=== PATIENT | male | born 1965 | race Caucasian/White ===

== ENCOUNTER 2016-04-26 15:15 | Inpatient (IN) | payer OTHER, MEDICARE ==
[~2016-04-26] VITALS: Ht 180.3 cm; Wt 87.7 kg
[2016-04-26 15:17] VITALS: BP 138/98; PULSE 113; RESP 17; TEMP 98.2; O2SAT 98
[2016-04-26 16:50] VITALS: BP 157/100; PULSE 102; RESP 16; O2SAT 98
[2016-04-26] MEDS ORDERED: ACETAMINOPHEN/HYDROcodone 325 MG/5 MG TAB PO ONE (17:45)
[2016-04-26] MEDS: methylPREDNISolone SOD SUCC 125 MG/2 ML VIAL IM SCH (17:45)
[2016-04-26 18:50] VITALS: BP 122/87; PULSE 83; RESP 16; O2SAT 97
--- NOTE | 2016-04-26 19:08 | RADRPT ---
EXAM DATE/TIME: 04/26/2016 18:06 [facility] COMPARISON: No previous studies available for comparison. INDICATIONS : Inability to ambulate. MEDICAL HISTORY : Carcinoma, prostate. Parkinson's. SURGICAL HISTORY : Inguinal hernia repair. ENCOUNTER: Initial ACUITY: 4-6 days PAIN SCORE: 4/10 LOCATION: Back TECHNIQUE: Multiplanar multisequence MRI of the thoracic spine was performed. FINDINGS: Sagittal T1, T2 and inversion recovery images show a mild levoscoliosis of the dorsal spine with asso ciated multilevel degenerative disc disease. Spurs are most prominent posteriorly at T7-T8 and T10-T 11 which encroach on the anterior epidural space. However, I believe the spinal canal is widely barah[place] nt throughout without cord compromise. Vertebral body heights are maintained without fracture. Detailed axial images are as follows: . T1-T2: Normal. T2-T3: The thecal sac has a normal diameter. No evidence of disc bulge or protrusion. T3-T4: The thecal sac has a normal diameter. No evidence of disc bulge or protrusion. T4-T5: The thecal sac has a normal diameter. No evidence of disc bulge or protrusion. T5-T6: The thecal sac has a normal diameter. No evidence of disc bulge or protrusion. T6-T7: The thecal sac has a normal diameter. No evidence of disc bulge or protrusion. T7-T8: Prominent left posterior disc spur. Spinal canal remains patent. T8-T9: The thecal sac has a normal diameter. No evidence of disc bulge or protrusion. T9-T10: The thecal sac has a normal diameter. No evidence of disc bulge or protrusion. T10-T11: Not as evident on the axial images, but there does appear to be a small posterior marginal spur on th e sagittal images. Minimal encroachment on the anterior epidural space but the spinal canal is paten t. T11-T12: The thecal sac has a normal diameter. No evidence of disc bulge or protrusion. T12-L1: The thecal sac has a normal diameter. No evidence of disc bulge or protrusion. CONCLUSION: 1. Minimal levoscoliosis of the lumbar spine with associated degenerative changes. Prominent disc s pur most obvious at T7-T8 with some encroachment on the anterior epidural space. 2. However, the spinal canal appears to be adequate throughout without cord compromise. No acute fr acture or listhesis. Sukhi Lizarraga MD on April 26, 2016 at 18:59 Board Certified Radiologist. This report was verified electronically.
--- NOTE | 2016-04-26 19:18 | RADRPT ---
EXAM DATE/TIME: 04/26/2016 18:06 [facility] COMPARISON: CT CERVICAL SPINE W/O CONTRAST, December 28, 2015, 0:02. INDICATIONS : Inability to ambulate. MEDICAL HISTORY : Parkinson's. Carcinoma, prostate. SURGICAL HISTORY : Inguinal hernia repair. ENCOUNTER: Initial ACUITY: 4-6 days PAIN SCORE: 0/10 LOCATION: neck TECHNIQUE: Multiplanar, multisequence MRI examination of the cervical spine was performed. FINDINGS: VERTEBRAE: Normal vertebral body height. Homogeneous marrow signal. ALIGNMENT: No evidence of subluxation. CORD: Normal configuration and signal. POST FOSSA: The cerebellar tonsils are normal in position. C2-C3: The thecal sac has a normal configuration. There is no evidence of disc herniation or spinal canal s tenosis. The neural foramina are patent bilaterally. There is facet hypertrophy. C3-C4: The thecal sac has a normal configuration. There is no evidence of disc herniation or spinal canal s tenosis. There is facet hypertrophy. There is some narrowing of the left neural foramina. The right n eural foramina is patent. C4-C5: The thecal sac has a normal configuration. There is no evidence of disc herniation or spinal canal s tenosis. There is facet hypertrophy. There is some narrowing of the left neural foramina. The right neural foramina is patent. C5-C6: There is minimal posterior bulging of the disc. The thecal sac has a normal configuration. There is f acet hypertrophy. There is some narrowing of the left neural foramina. The right neural foramina is p atent. C6-C7: The thecal sac has a normal configuration. There is no evidence of disc herniation or spinal canal s tenosis. There is facet hypertrophy. There is some narrowing of the left neural foramina. The right neural foramina is patent. C7-T1: The thecal sac has a normal configuration. There is no evidence of disc herniation or spinal canal s tenosis. The neural foramina are patent bilaterally. There is facet hypertrophy. CONCLUSION: Mild degenerative change throughout the cervical spine. There is left neural foraminal narrowing thro ughout the mid cervical spine. Sinan Roberts MD on April 26, 2016 at 19:12 Board Certified Radiologist. This report was verified electronically.
--- NOTE | 2016-04-26 19:34 | RADRPT ---
EXAM DATE/TIME: 04/26/2016 18:06 [facility] COMPARISON: No previous studies available for comparison. INDICATIONS : Inability to ambulate. MEDICAL HISTORY : Parkinson's. Carcinoma, prostate. SURGICAL HISTORY : Inguinal hernia repair. ENCOUNTER: Initial ACUITY: 4-6 days PAIN SCORE: 5/10 LOCATION: Low back TECHNIQUE: Multiplanar multisequence MRI of the lumbar spine was performed without contrast. FINDINGS: The sagittal, T1, T2 and inversion-recovery images show multilevel degenerative disc disease with Mod ic endplate changes most prominent at the lumbosacral junction. There is severe loss of disc height and a diffuse disc bulge with associated marginal spurring at the lumbosacral junction. There is pre servation of disc hydration at l2-L3 and L3-L4 with early disc desiccation at L4-L5. There is some d egree of spinal stenosis most significant at the L3-l4 level and predominantly due to posterior eleme nt hypertrophy. There is minimal grade I retrolisthesis of L5 on S1 again, likely due to facet degen eration. Also noted is a 1.6 cm benign-appearing cyst in the medial aspect of the right renal cortex . Detailed axial images as follows: . T12-L1: The thecal sac has a normal diameter. No evidence of disc bulge or protrusion. The neural foramina are patent bilaterally. L1-L2: The thecal sac has a normal diameter. No evidence of disc bulge or protrusion. The neural f oramina are patent bilaterally. L2-L3: The thecal sac has a normal diameter. No evidence of disc bulge or protrusion. The neural f oramina are patent bilaterally. L3-L4: There is marked facet hypertrophy. There is resulting moderate central spinal stenosis. I a lso believe that there is some compromise of the left L3 nerve root. The right neural foramen is com promised but I believe adequate. L4-L5: Again, marked facet hypertrophy. This encroaches on the neural foramina, left worse than rig ht and probably compromises the left L4 nerve root. Moderate central spinal stenosis. Right neural foramen is adequate. L5-S1: Most severely affected level with a diffuse disc and associated spurring. The right posterol ateral spur encroaches on the lateral recess and probably compromises the nerve root at the S1 distri bution. There is also narrowing of both neural foramina and probable compromise of the L5 nerve root s. Facet hypertrophy is present at this level as well. CONCLUSION: 1. Degenerative disc disease most severe at the lumbosacral junction with near [id number] articula tion and a diffuse disc bulge. 2. There is some narrowing of the spinal canal at L3-L4 and L4-L5. This is most severe at the L3-L4 level where there may be central nerve root compromise. 3. In addition, foraminal narrowing may be severe enough to compromise the left L3, left L4 and bila teral L5 nerve roots. This is predominantly due to facet hypertrophy. 4. Prominent disc spur at L5-S1 on the right encroaches on the lateral recess and may compromise the nerve root at right S1. 5. No acute osseous injury. Sukhi Lizarraga MD on April 26, 2016 at 19:03 Board Certified Radiologist. This report was verified electronically.
[2016-04-26] MEDS ORDERED: SODIUM CHLORIDE 0.9% FLUSH 5 ML FLUSH IVF PRN (20:15)
[2016-04-26] MEDS ORDERED: MORPHINE SULFATE 4 MG/ML INJ IV PRN (20:30)
--- NOTE | 2016-04-26 20:33 | RADRPT ---
EXAM DATE/TIME: 04/26/2016 20:24 [facility] COMPARISON: No previous studies available for comparison. INDICATIONS : Chest pain MEDICAL HISTORY : None. SURGICAL HISTORY : None. ENCOUNTER: Initial ACUITY: 1 day PAIN SCORE: 0/10 LOCATION: Bilateral chest FINDINGS: A single view of the chest demonstrates the lungs to be symmetrically aerated without evidence of mas s, infiltrate or effusion. The cardiomediastinal contours are unremarkable. There are old healed lef t rib fractures. CONCLUSION: No acute disease. Sinan Roberts MD on April 26, 2016 at 20:31 Board Certified Radiologist. This report was verified electronically.
[2016-04-26 20:54] LABS: AUTOMATED NEUTROPHIL # 2.7 TH/MM3 (1.8-7.7); BASOPHIL % 0.3 % (0.0-2.0); EOSINOPHIL % 0.2 % (0.0-4.0); HEMATOCRIT 38.5 % (39.0-51.0); LYMPH % 9.1 % (9.0-44.0); LYMPHOCYTE # 0.3 TH/MM3 (1.0-4.8); MEAN CELL VOLUME 92.2 FL (80.0-100.0); MEAN CORPUSCULAR HEMOGLOBIN 30.8 PG (27.0-34.0); MEAN CORPUSCULAR HGB CONC 33.4 % (32.0-36.0); MONO % 4.2 % (0.0-8.0); NEUT % 86.2 % (16.0-70.0); PLATELET COUNT 87 TH/MM3 (150-450); RED BLOOD COUNT 4.18 MIL/MM3 (4.50-5.90); RED CELL DISTRIBUTION WIDTH 14.9 % (11.6-17.2); WHITE BLOOD COUNT 3.1 TH/MM3 (4.0-11.0)
--- NOTE | 2016-04-26 20:54 | PD ---
HPI Chief Complaint: Numbness/Tingling Time Seen by Provider: 16:58 Travel History International Travel<30 days: No Contact w/Intl Traveler<30days: No Traveled to known affect area: No History of Present Illness HPI Patient 50-year-old male presents emergency Department with right lower extremity pain as well as difficulty in regulating for the past 4 days. Patient states he needs a steroid shot because this happens to him time to time. Patient states he does have a history of a slipped disc in his back from a rotational injury while he was feeling his gas tank 25 years ago. Patient states he has had an MRI that shows mild stenosis but has never needed surgery before. Patient states his also noticed that is very difficult for him to walk for the past 4 days because of leg weakness. He denies any history of recurrent trauma denies history of fever. No saddle anesthesia or difficulty urinating. Does have a history of Parkinson's disease. PFSH Past Medical History Medical other: Yes (SCIATICA) Influenza Vaccination: Yes Past Surgical History Other Surgery: Yes (HERNIA) Social History Alcohol Use: Yes (EVERYDAY ) Tobacco Use: No Substance Use: No Allergies-Medications (Allergen,Severity, Reaction): Coded Allergies: No Known Allergies (Unverified , 04/26/16) Reported Meds & Prescriptions Reported Meds & Active Scripts Active No Active Prescriptions or Reported Medications Review of Systems Except as stated in HPI: all other systems reviewed are Neg Physical Exam Narrative GENERAL: Well-developed well-nourished no apparent distress SKIN: Warm and dry. HEAD: Atraumatic. Normocephalic. EYES: Pupils equal and round. No scleral icterus. No injection or drainage. ENT: No nasal bleeding or discharge. Mucous membranes pink and moist. NECK: Trachea midline. No JVD. CARDIOVASCULAR: Regular rate and rhythm. No murmur appreciated. RESPIRATORY: No accessory muscle use. Clear to auscultation. Breath sounds equal bilaterally. GASTROINTESTINAL: Abdomen soft, non-tender, nondistended. Hepatic and splenic margins not palpable. MUSCULOSKELETAL: No obvious deformities. No clubbing. No cyanosis. No edema. NEUROLOGICAL: Awake and alert, bilateral pill-rolling tremors in the upper extremity. Cranial nerves II through XII are grossly intact and nonfocal, 5 out of 5 strength in bilateral upper extremities, 5 out of 5 strength in left lower externa. Patient is having one out of 5 strength in dorsiflexion and plantar flexion at the right ankle. Patient's DTRs are unable to be elicited at bilateral patellar tendons. There is no clonus in either foot. PSYCHIATRIC: Appropriate mood and affect; insight and judgment normal. Data Data Last Documented VS Vital Signs Date Time Temp Pulse Resp B/P Pulse Ox O2 Delivery O2 Flow Rate FiO2 04/26/16 18:50 83 16 122/87 97 Room Air 04/26/16 15:17 98.2 Orders Mri C Spine W/O Contrast (04/26/16 ) Mri L Spine W/O Contrast (04/26/16 ) Mri T Spine W/O Contrast (04/26/16 ) Methylprednisolone So Succ Inj (Solumedr (04/26/16 17:45) Acetamin-Hydrocod 325-5 Mg ([place] 5-325 (04/26/16 17:45) Admit Order (Ed Use Only) (04/26/16 ) Complete Blood Count With Diff (04/26/16 20:13) Comprehensive Metabolic Panel (04/26/16 20:13) Magnesium (Mg) (04/26/16 20:13) Prothrombin Time / Inr (Pt) (04/26/16 20:13) Act Partial Throm Time (Ptt) (04/26/16 20:13) Chest, Single Ap (04/26/16 20:13) Ecg Monitoring (04/26/16 20:13) Bilateral Bp Monitoring (04/26/16 20:13) Iv Access Insert/Monitor (04/26/16 20:13) Oximetry (04/26/16 20:13) Oxygen Administration (04/26/16 20:13) Sodium Chloride 0.9% Flush (Ns Flush) (04/26/16 20:15) Type And Screen (04/26/16 20:13) MDM Medical Decision Making Medical Screen Exam Complete: Yes Emergency Medical Condition: Yes Interpretation(s) EKG shows normal sinus rhythm and normal axis normal R-wave progression. No concerning STT changes. Normal EKG. Differential Diagnosis Cauda equina syndrome, critical lumbar stenosis, chronic foot drop seems less likely. Narrative Course Last 24 hours Impressions Chest X-Ray 04/26/162012 Signed Impressions: Service Date/Time: Tuesday, April 26, 2016 20:24 - CONCLUSION: No acute disease. Sinan Roberts MD Thoracic Spine MRI 04/26/16 0000 Signed Impressions: Service Date/Time: Tuesday, April 26, 2016 18:06 - CONCLUSION: 1. Minimal levoscoliosis of the lumbar spine with associated degenerative changes. Prominent disc spur most obvious at T7-T8 with some encroachment on the anterior epidural space. 2. However, the spinal canal appears to be adequate throughout without cord compromise. No acute fracture or listhesis. Sukhi Lizarraga MD Lumbar Spine MRI 04/26/16 0000 Signed Impressions: Service Date/Time: Tuesday, April 26, 2016 18:06 - CONCLUSION: 1. Degenerative disc disease most severe at the lumbosacral junction with near [id number]-[id number]-[id number] articulation and a diffuse disc bulge. 2. There is some narrowing of the spinal canal at L3-L4 and L4-L5. This is most severe at the L3-L4 level where there may be central nerve root compromise. 3. In addition, foraminal narrowing may be severe enough to compromise the left L3, left L4 and bilateral L5 nerve roots. This is predominantly due to facet hypertrophy. 4. Prominent disc spur at L5-S1 on the right encroaches on the lateral recess and may compromise the nerve root at right S1. 5. No acute osseous injury. Sukhi Lizarraga MD Cervical Spine MRI 04/26/16 0000 Signed Impressions: Service Date/Time: Tuesday, April 26, 2016 18:06 - CONCLUSION: Mild degenerative change throughout the cervical spine. There is left neural foraminal narrowing throughout the mid cervical spine. Sinan Roberts MD MRI results were discussed with the patient and I strongly urged him to consider neurosurgery consult tonight given his level of foot drop. Patient states that this happens to him intermittently and he usually responds to steroids. I discussed with him that at this point he is certainly unlikely to be able to walk given his level of foot drop and recommended strongly that he stay. Initially he was highly reluctant to wanted to go home. I asked him sign an AMA form and he was agreeable. He did attempt to stand and walk and at that point he did have a fall landing on bilateral knees. There is no evidence of significant traumatic injury to his knees. Occurrence report was filed. Patient then agreed to stay in the hospital. Dr. Escobar was consult at in will see the patient tonight she reviewed the MRI over the phone and states that surgery may be indicated. Basic labs were added as part of preoperative workup as requested by Dr. Escobar and the patient will be admitted to Dr. Escobar. Chemistry remained pending at time of admission. Diagnosis Primary Impression: Foot drop Qualified Code: M21.371 - Right foot drop Additional Impression: Spinal stenosis Patient Instructions: General Instructions, Narcotic given in the ED Departure Forms: Tests/Procedures Scripts No Active Prescriptions or Reported Meds Condition: Stable Bao Melendez MD Apr 26, 2016 20:54
[2016-04-26] MEDS: SODIUM CHLORIDE 0.9% FLUSH 5 ML FLUSH IV FLUSH SCH (20:59)
[2016-04-26 21:04] LABS: APTT (PATIENT) 26.3 SEC (24.3-30.1); INTERNATIONAL NORMALIZED RATIO 1.1 RATIO; PROTHROMBIN TIME - PATIENT 11.8 SEC (9.8-11.6)
[2016-04-26 21:12] LABS: HEMO FLAGS AUTO DIFF
[2016-04-26 21:30] LABS: ANION GAP 17 MEQ/L (5-15); AST (GOT) 207 U/L (15-37); BICARBONATE 22.5 MEQ/L (21.0-32.0); BLOOD UREA NITROGEN 11 MG/DL (7-18); CHLORIDE 96 MEQ/L (98-107); GLOMERULAR FILTRATION RATE 103 ML/MIN (>89); MAGNESIUM 1.9 MG/DL (1.5-2.5); POTASSIUM 3.5 MEQ/L (3.5-5.1); SODIUM (NA) 135 MEQ/L (136-145)
--- NOTE | 2016-04-26 21:31 | HHI.HP ---
[facility] Service neurosurgery Primary Care Physician Adal ARBOLEDA Chief Complaint: right leg giving out History of Present Illness 50 yr old with tremor dominant PD fell trying to get OOB last Wednesday morning because of right foot drop. He came to the ED and was found on MRI to have severe lumbar stenosis from L3 to L5. 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 He denied bowel or bladder problems. Review of Systems Constitutional: DENIES: Diaphoretic episodes, Fatigue, Fever, Weight gain, Weight loss, Chills, Dizziness, Change in appetite, Night Sweats Endocrine: DENIES: Heat/cold intolerance, Polydipsia, Polyuria, Polyphagia Eyes: DENIES: Blurred vision, Diplopia, Eye inflammation, Eye pain, Vision loss , Photosensitivity, Double Vision Ears, nose, mouth, throat: DENIES: Tinnitus, Hearing loss, Vertigo, Nasal discharge, Oral lesions, Throat pain, Hoarseness, Ear Pain, Running Nose, Epistaxis, Sinus Pain, Toothache, Odynophagia Respiratory: DENIES: Apneas, Cough, Snoring, Wheezing, Hemoptysis, Sputum production, Shortness of breath Cardiovascular: COMPLAINS OF: Claudication, DENIES: Chest pain, Palpitations, Syncope, Dyspnea on Exertion, PND, Lower Extremity Edema, Orthopnea Gastrointestinal: DENIES: Abdominal pain, Black stools, Bloody stools, Constipation, Diarrhea, Nausea, Vomiting, Difficulty Swallowing, Anorexia Genitourinary: DENIES: Sexual dysfunction, Urinary frequency, Urinary incontinence, Urgency, Hematuria, Dysuria, Nocturia, Penile Discharge, Testicular Pain, Testicular Swelling Musculoskeletal: COMPLAINS OF: Joint pain, Back pain Hematologic/lymphatic: DENIES: Bruising, Lymphadenopathy Immunologic/allergic: DENIES: Eczema, Urticaria Neurologic: COMPLAINS OF: Abnormal gait, Localized weakness, Tremor Psychiatric: COMPLAINS OF: Anxiety Past Family Social History Allergies: Coded Allergies: No Known Allergies (Unverified , 04/26/16) Past Medical History Parkinson's disease, not on medication, does use 4-6 beer or wine per day . He was diagnosed in [place] at [facility] OA, Club foot, right leg weakness Prostate CA, resected last spring 2015. 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 Tremor at rest and with action, right greater than left, Motor intact 5/5 in the delt/bic/tri/IO, 4/5 in the hip flexors but 5/5 in the quads bi. Right ant tib and EHL 0/5, 5/5 on the left, gastroc 5/5 eric Reflexes are 2/4 in the bic/tri, no Shepherd sign, patella reflexes are present. did not appreciate ankle reflexes. Sensation decreased in the right leg weakness is out of proportion to the pain or numbness. Abd soft, non tender, Heart RRR Lungs are clear Laboratory Laboratory Tests Test 04/26/16 20:44 White Blood Count 3.1 Red Blood Count 4.18 Hemoglobin 12.9 Hematocrit 38.5 Mean Corpuscular Volume 92.2 Mean Corpuscular Hemoglobin 30.8 Mean Corpuscular Hemoglobin 33.4 Concent Red Cell Distribution Width 14.9 Platelet Count 87 Mean Platelet Volume 9.7 Neutrophils (%) (Auto) 86.2 Lymphocytes (%) (Auto) 9.1 Monocytes (%) (Auto) 4.2 Eosinophils (%) (Auto) 0.2 Basophils (%) (Auto) 0.3 Neutrophils # (Auto) 2.7 Lymphocytes # (Auto) 0.3 Monocytes # (Auto) 0.1 Eosinophils # (Auto) 0.0 Basophils # (Auto) 0.0 CBC Comment AUTO DIFF Prothrombin Time 11.8 Prothromb Time International 1.1 Ratio Activated Partial 26.3 Thromboplast Time Result Diagram: 04/26/162043 Imaging Last Impressions Chest X-Ray 04/26/162012 Signed Impressions: Service Date/Time: Tuesday, April 26, 2016 20:24 - CONCLUSION: No acute disease. Sinan Roberts MD Thoracic Spine MRI 04/26/16 0000 Signed Impressions: Service Date/Time: Tuesday, April 26, 2016 18:06 - CONCLUSION: 1. Minimal levoscoliosis of the lumbar spine with associated degenerative changes. Prominent disc spur most obvious at T7-T8 with some encroachment on the anterior epidural space. 2. However, the spinal canal appears to be adequate throughout without cord compromise. No acute fracture or listhesis. Sukhi Lizarraga MD Lumbar Spine MRI 04/26/16 0000 Signed Impressions: Service Date/Time: Tuesday, April 26, 2016 18:06 - CONCLUSION: 1. Degenerative disc disease most severe at the lumbosacral junction with near [id number] articulation and a diffuse disc bulge. 2. There is some narrowing of the spinal canal at L3-L4 and L4-L5. This is most severe at the L3-L4 level where there may be central nerve root compromise. 3. In addition, foraminal narrowing may be severe enough to compromise the left L3, left L4 and bilateral L5 nerve roots. This is predominantly due to facet hypertrophy. 4. Prominent disc spur at L5-S1 on the right encroaches on the lateral recess and may compromise the nerve root at right S1. 5. No acute osseous injury. Sukhi Lizarraga MD Cervical Spine MRI 04/26/16 0000 Signed Impressions: Service Date/Time: Tuesday, April 26, 2016 18:06 - CONCLUSION: Mild degenerative change throughout the cervical spine. There is left neural foraminal narrowing throughout the mid cervical spine. Sinan Roberts MD Assessment and Plan Diagnosis: (1) Spinal stenosis Assessment and Plan Plan admission, OT/PT, lumbar decompression from L3 to L5. The thrombocytopenia is probably from alcohol use and does increase the risk of surgery. Other risks infection, CSF leak, recurrent stenosis were discussed with him. An AFO is ordered as well as DVT and PUD prophylaxis. Problem Qualifiers (1) Spinal stenosis: Qualified Code: M48.06 - Spinal stenosis of lumbar region Wesley Escobar Apr 26, 2016 21:31
[2016-04-26 21:33] LABS: ALKALINE PHOSPHATASE 74 U/L (45-117); ALT (GPT) 118 U/L (12-78); PLATELET ESTIMATE SMEAR LOW (NORMAL); PLATELET MORPHOLOGY NORMAL (NORMAL); SCAN/DIFF AUTO DIFF CONFIRMED; TOTAL BILIRUBIN ADULT 3.5 MG/DL (0.2-1.0)
[2016-04-26 22:09] VITALS: BP 133/88; PULSE 110; RESP 18; O2SAT 97
[2016-04-26] MEDS: GABAPENTIN 400 MG CAP PO SCH (22:09)
[2016-04-26 22:30] VITALS: BP 156/92; PULSE 105; RESP 20; TEMP 98.1; O2SAT 96
[2016-04-26] MEDS: ALPRAZolam 0.25 MG TAB PO PRN (23:31)
[2016-04-27 01:31] VITALS: BP 157/93; PULSE 96; RESP 20; TEMP 98.2; O2SAT 97
[2016-04-27 04:35] VITALS: BP 149/82; PULSE 90; RESP 20; TEMP 97.8; O2SAT 96
[2016-04-27 06:28] LABS: INDIRECT BILIRUBIN 1.2 MG/DL (0.0-0.8); TOTAL BILIRUBIN ADULT 2.8 MG/DL (0.2-1.0)
[2016-04-27 09:18] VITALS: BP 152/92; PULSE 99; RESP 18; TEMP 96.5; O2SAT 98
[2016-04-27] MEDS ORDERED: DIATRIZOATE MEGLUM/DIATRIZOATE SOD 9 ML CUP PO ONE (09:30)
[2016-04-27] MEDS: NAPROXEN 500 MG TAB PO SCH ×3 (09:48→22:41)
[2016-04-27] MEDS: PANTOPRAZOLE SODIUM 40 MG VIAL IV SCH (09:49)
[2016-04-27] MEDS: SODIUM CHLORIDE 0.9% FLUSH 5 ML FLUSH IV FLUSH SCH ×2 (09:49→22:20)
[2016-04-27 11:36] VITALS: BP 155/95; PULSE 73; RESP 18; TEMP 96.6; O2SAT 99
[2016-04-27] MEDS ORDERED: IOHEXOL 350 MG/ML 10 ML VIAL (for RAD DIAG) IV ONE (12:58)
--- NOTE | 2016-04-27 13:31 | RADRPT ---
EXAM DATE/TIME: 04/27/2016 12:49 [facility] COMPARISON: No previous studies available for comparison. INDICATIONS : Abnormal liver profile. IV CONTRAST: 76 cc Omnipaque 350 (iohexol) IV ORAL CONTRAST: Prescribed oral contrast ingested. RADIATION DOSE: 8.49 CTDIvol (mGy) MEDICAL HISTORY : Parkinson's. SURGICAL HISTORY : hernia surgery ENCOUNTER: Initial ACUITY: 1 day PAIN SCALE: 0/10 LOCATION: Bilateral abdomen TECHNIQUE: Volumetric scanning of the abdomen and pelvis was performed. Using automated exposure control and adjustment of the mA and/or kV according to patient size, radiation dose was kept as low as reasonably achievable to obtain optimal diagnostic quality images. FINDINGS: LOWER LUNGS: The visualized lower lungs are clear. LIVER: There is hepatomegaly with decreased homogeneous density consistent with fatty metamorphos is. Gallbladder is seen as a luminal structure without wall thickening or stones and bile ducts are n ormal size. SPLEEN: Normal size without lesion. PANCREAS: Within normal limits. KIDNEYS: Normal in size and shape. There is no stone or hydronephrosis. Small 1.2 cm cyst lower pole right kidney ADRENAL GLANDS: Within normal limits. VASCULAR: There is no aortic aneurysm. BOWEL/MESENTERY: The stomach, small bowel, and colon demonstrate no acute abnormality. There is no free intraperitoneal air or fluid. ABDOMINAL WALL: Within normal limits. RETROPERITONEUM: There is no lymphadenopathy. BLADDER: No wall thickening or mass. Surgical clips in place in the prostate region. REPRODUCTIVE: Within normal limits. INGUINAL: There is no lymphadenopathy or hernia. MUSCULOSKELETAL: Degenerative changes of lower lumbar spine primarily facet arthritic changes wit h degenerative changes disc disease at L5-S1 and hypertrophic spurring CONCLUSION: 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 Clips in the region the prostate, degenerative changes primar niharika facets of the lower lumbar spine and a small 1.2 cm cyst lower pole right kidney. Felice Dong MD on April 27, 2016 at 13:25 Board Certified Radiologist. This report was verified electronically.
--- NOTE | 2016-04-27 13:40 | PD.CONS ---
HPI History of Present Illness This is a 50 year old male patient who woke up early Wednesday morning to go to the bathroom and states that when he went to stand up his right leg was so weak that he cannot stand and he fell to the floor. He was unable to get up by himself. He states initially his was helping him and he was trying to use a cane and he had around the house but he got to the point that he cannot ambulate. He does have a history of Parkinson's disease. He reports that he has had tremors, worse on his right side since he was a child and that he was diagnosed at [facility] with Parkinson's disease. He states that his disease has not progressed at all since he was a child and that he was able to cope by teaching himself how to write with his left hand, as his tremors are very mild on his left side. He was found to have spinal stenosis at L3-L4 and L4-L5 with central nerve root compromise and was evaluated by neurosurgery and the plan is for him to undergo a lumbar decompression from L3 to L5. GI has been consulted for evaluation for possible liver disease. He was noted to have elevated LFTs on admission with a total bilirubin of 3.5, AST 207, ALT 118, alkaline phosphatase 74. Of note his albumin was 3.9, platelets 87, and PT 11.8 with an INR of 1.1 and a PTT of 26.3. The patient denies any known history of liver cirrhosis or other liver disease such as hepatitis in himself or other family members. He does drink 4 beers daily. He was recently started on any medication but cannot recall what this was. He only occasionally uses acetaminophen. He denies any nausea, vomiting, abdominal pain, weight loss, constipation, diarrhea, melena, or hematochezia. He just got back to his room from having a CT scan of his abdomen and pelvis and this report is pending. ( Honey Pickett) PFSH Past Medical History ? Parkinson's, pt states diagnosed at [facility], not on medications Osteoarthritis History of club foot Prostate cancer in May 2015 status post surgery and radiation Past Surgical History Surgery for prostate cancer Surgery for club foot (Honey Pickett) Coded Allergies: No Known Allergies (Unverified , 04/26/16) Medications Allergies Coded Allergies Type Severity Reaction Last Updated Verified No Known Allergies 1/22/17 No Active Scripts Medications Dose Route/Sig Days Date Category No Active Prescriptions or Reported Medications Rx Does report that he was recently started on any medication but does not recall what this was Family History Family history with COPD in father and mother with high blood pressure. Eyes any known family history of liver disease Social History Patient drinks 4-6 beers per day. He denies any tobacco or illicit drug use ( Honey Pickett) Review of Systems Constitutional: DENIES: Fatigue, Weight loss Respiratory: DENIES: Cough, Shortness of breath Cardiovascular: DENIES: Chest pain Gastrointestinal: DENIES: Abdominal pain, Black stools, Bloody stools, Constipation, Diarrhea, Nausea, Vomiting, Swelling of Abdomen, Heartburn Musculoskeletal: COMPLAINS OF: Joint pain Integumentary: DENIES: Abnormal pigmentation Neurologic: COMPLAINS OF: Abnormal gait (tremors), Localized weakness, DENIES : Headache Psychiatric: DENIES: Confusion (Honey Pickett) GI Exam Vitals I&O Vital Signs Date Time Temp Pulse Resp B/P Pulse Ox O2 Delivery O2 Flow Rate FiO2 04/27/16 11:36 96.6 73 18 155/95 99 04/27/16 11:30 18 04/27/16 09:18 96.5 99 18 152/92 98 04/27/16 04:35 97.8 90 20 149/82 96 04/27/16 01:31 98.2 96 20 157/93 97 04/26/16 22:30 98.1 105 20 156/92 96 04/26/16 22:09 110 18 133/88 97 Room Air 04/26/16 18:50 83 16 122/87 97 Room Air 04/26/16 16:50 102 16 157/100 98 Room Air 04/26/16 15:17 98.2 113 17 138/98 98 I/O 04/26/16 04/26/16 04/26/16 04/27/16 04/27/16 04/27/16 07:00 15:00 23:00 07:00 15:00 23:00 Intake Total 960 ml Output Total 1500 ml Balance -540 ml Intake Oral 960 ml Output Urine Total 1500 ml # Bowel Movements 1 Imaging Last 24 hours Impressions Chest X-Ray 04/26/162012 Signed Impressions: Service Date/Time: Tuesday, April 26, 2016 20:24 - CONCLUSION: No acute disease. Sinan Roberts MD Laboratory Test 04/26/16 04/27/16 20:44 05:35 White Blood Count 3.1 TH/MM3 Red Blood Count 4.18 MIL/MM3 Hemoglobin 12.9 GM/DL Hematocrit 38.5 % Mean Corpuscular Volume 92.2 FL Mean Corpuscular Hemoglobin 30.8 PG Mean Corpuscular Hemoglobin 33.4 % Concent Red Cell Distribution Width 14.9 % Platelet Count 87 TH/MM3 Mean Platelet Volume 9.7 FL Neutrophils (%) (Auto) 86.2 % Lymphocytes (%) (Auto) 9.1 % Monocytes (%) (Auto) 4.2 % Eosinophils (%) (Auto) 0.2 % Basophils (%) (Auto) 0.3 % Neutrophils # (Auto) 2.7 TH/MM3 Lymphocytes # (Auto) 0.3 TH/MM3 Monocytes # (Auto) 0.1 TH/MM3 Eosinophils # (Auto) 0.0 TH/MM3 Basophils # (Auto) 0.0 TH/MM3 CBC Comment AUTO DIFF Differential Comment AUTO DIFF CONFIRMED Platelet Estimate LOW Platelet Morphology Comment NORMAL Prothrombin Time 11.8 SEC Prothromb Time International 1.1 RATIO Ratio Activated Partial 26.3 SEC Thromboplast Time Sodium Level 135 MEQ/L Potassium Level 3.5 MEQ/L Chloride Level 96 MEQ/L Carbon Dioxide Level 22.5 MEQ/L Anion Gap 17 MEQ/L Blood Urea Nitrogen 11 MG/DL Creatinine 0.79 MG/DL Estimat Glomerular Filtration 103 ML/MIN Rate Random Glucose 134 MG/DL Calcium Level 9.1 MG/DL Magnesium Level 1.9 MG/DL Total Bilirubin 3.5 MG/DL 2.8 MG/DL Aspartate Amino Transf 207 U/L 244 U/L (AST/SGOT) Alanine Aminotransferase 118 U/L 127 U/L (ALT/SGPT) Alkaline Phosphatase 74 U/L 69 U/L Total Protein 8.1 GM/DL 7.4 GM/DL Albumin 3.9 GM/DL 3.6 GM/DL Blood Type A POSITIVE Antibody Screen NEGATIVE Erythrocyte Sedimentation Rate 16 mm/hr Direct Bilirubin 1.6 MG/DL Indirect Bilirubin 1.2 MG/DL Prostate Specific Antigen 0.27 NG/ML Physical Examination HEENT: Normocephalic; atraumatic; no jaundice. CHEST: CTA CARDIAC: RRR ABDOMEN: Soft, nondistended, nontender; no hepatosplenomegaly; bowel sounds are present in all four quadrants. EXTREMITIES: No clubbing, cyanosis, or edema. SKIN: Normal; no rash; no jaundice. 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 Tremors to all extremities, more pronounced on right side (Honey Pickett) Assessment and Plan Plan ASSESSMENT: - Elevated LFTs. He was noted to have elevated LFTs on admission with a total bilirubin of 3.5, AST 207, ALT 118, alkaline phosphatase 74. Of note his albumin was 3.9, platelets 87, and PT 11.8 with an INR of 1.1 and a PTT of 26.3. The patient denies any known history of liver cirrhosis or other liver disease such as hepatitis in himself or other family members. He does drink 4 beers daily. He was recently started on any medication but cannot recall what this was. He only occasionally uses acetaminophen. No GI symptoms. CT Scan pending. Will order liver workup, await CT report. - RLE weakness with spinal stenosis at L3-L4 and L4-L5 with central nerve root compromise. S/P NSx and the plan is for him to undergo a lumbar decompression from L3 to L5. - Tremors. Pt states that he has had this since he was a child, worse on the right. States that he has been able to cope by teaching himself to write with his left hand. He reports that he was diagnosed with Parkinson 's at [facility] and is not on medication and that he has not had any progression of his disease since childhood. PLAN: - ANIVAL - Await CT Scan - Hepatitis panel - AFP level - GÉNESIS, ASMA, AMA - Ceruloplasmin, Alpha 1 Antitrypsin - Ferritin, Iron Saturation - Monitor labs - Avoid hepatotoxic meds - Supportive care - Further recommendations to follow based on results of above - Pt seen and examined by Dr. Bland and myself and this note is written on his behalf (Honey Pickett) Physician Comments agree with above (Paola Bland MD) Honey Pickett Apr 27, 2016 13:40 Paola Bland MD Apr 28, 2016 20:19
[2016-04-27 15:49] VITALS: BP 129/87; PULSE 89; RESP 18; TEMP 98.3; O2SAT 99
--- NOTE | 2016-04-27 16:39 | EKG ---
Date Performed: 04/26/2016 Time Performed: 20:37:46 PTAGE: 50 years EKG: Sinus rhythm TALL T-WAVES, SUGGESTS HYPERKALEMIA ABNORMAL ECG NO PREVIOUS TRACING DOCTOR: Kassie Barroso Interpretating Date/Time 04/27/2016 16:37:00
[2016-04-27] MEDS: methylPREDNISolone SOD SUCC 125 MG/2 ML VIAL IM SCH (17:45)
[2016-04-27 20:00] VITALS: BP 130/82; PULSE 89; RESP 18; TEMP 98.7; O2SAT 99
[2016-04-27 22:16] LABS: FERRITIN 1595 NG/ML (26-388); TRANSFERRIN IRON PROFILE 220 MG/DL (200-360)
[2016-04-27] MEDS: GABAPENTIN 400 MG CAP PO SCH (22:19)
[2016-04-27] MEDS: oxyCODONE/ACETAMINOPHEN 5 MG/325 MG TAB PO PRN (22:19)
[2016-04-27] MEDS: ALPRAZolam 0.25 MG TAB PO PRN (22:42)
[2016-04-28] VITALS (11 sets, daily range): BP systolic 115–171; BP diastolic 79–109; PULSE 67–85; RESP 18–20; TEMP 96.2–97.9; O2SAT 97–99
[2016-04-28] MEDS ORDERED: ENALAPRILAT 1.25 MG/ML VIAL IV PUSH SCH (01:15)
[2016-04-28] MEDS: SODIUM CHLORIDE 0.9% FLUSH 5 ML FLUSH IV FLUSH PRN (01:21)
[2016-04-28] MEDS: NAPROXEN 500 MG TAB PO SCH ×2 (10:01→20:29)
[2016-04-28] MEDS: SODIUM CHLORIDE 0.9% FLUSH 5 ML FLUSH IV FLUSH SCH ×2 (10:02→20:30)
[2016-04-28] MEDS: PANTOPRAZOLE SODIUM 40 MG VIAL IV SCH (10:02)
--- NOTE | 2016-04-28 10:52 | HHI.NSPN ---
History Chief Complaint: cramping in thr right leg Interval History 50 yr old with essential tremor and tremor dominant PD presented with a fall. He is very weak and numb in the right leg. Lumbar stenosis was evident on MRI but he was found on pre-op testing to have fatty liver and abnormal LFTs. GI input is appreciated. He he is now ready to procedure with lumbar decompression surgery. Review of Systems General: Negative for: fever, chills, insomnia Respiratory: Negative for: shortness of breath, cough, sputum Cardiovascular: Negative for: chest pain, palpitations, orthopnea Gastrointestinal: Negative for: nausea, vomitting, diarrhea, constipation Genitourinary: Negative for: urinary burning, urinary frequency, urinary urgency System Review Comments Fatty liver Negative PSA and CT of the abdomen pelcis for prostate CA at this time Exam Results Vital Signs Date Time Temp Pulse Resp B/P Pulse Ox O2 Delivery O2 Flow Rate FiO2 04/28/16 08:00 97.4 67 20 135/90 97 04/26/16 22:09 Room Air Intake and Output 04/27/16 04/27/16 04/28/16 08:00 16:00 00:00 Intake Total 960 ml 480 ml Output Total 1500 ml Balance -540 ml 480 ml Physical Examination Sitting on the edge of the bed alert and interactive, speech clear, eomi, No pronator drift, no bradykinesia, normal finger taps bilaterally but better on the left than the right. Dysmetria, right sided Weakness right hip felxor4/5, quad 4/5, ant tib 0/5, gastroc 4/5 Weakness in the left hip flexor 4+/5, quad 5/5, ant tib 5/5, gastroc 5/5 Numbness mostly right L5/S1 Reflexes are present 2/4 in the left patella and ankle, 1/4 in the right patella and ankle Lab, Micro, Other Results Laboratory Tests Test 04/27/16 12:12 Iron Level 115 MCG/DL Total Iron Binding Capacity 308 MCG/DL Percent Iron Saturation 37.3 % Ferritin 1595 NG/ML Tumor Marker Alpha Fetoprotein 7.6 NG/ML Hepatitis A IgM Antibody NEGATIVE Hepatitis B Surface Antigen NEGATIVE Hepatitis B Core IgM Antibody NEGATIVE Hepatitis C Antibody NEGATIVE Free Prostate Specific Antigen <0.1 ng/mL Prostate Specific Antigen 0.31 ng/mL Total Prostate Specific Antign . ratio Free/Total Medical Decision Making Impression and Plan Last Impressions Abdomen/Pelvis CT 04/27/16 0000 Signed Impressions: Service Date/Time: Wednesday, April 27, 2016 12:49 - CONCLUSION: 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 Clips in the region the prostate, degenerative changes primarily facets of the lower lumbar spine and a small 1.2 cm cyst lower pole right kidney. Felice Dong MD Chest X-Ray 04/26/162012 Signed Impressions: Service Date/Time: Tuesday, April 26, 2016 20:24 - CONCLUSION: No acute disease. Sinan Roberts MD Thoracic Spine MRI 04/26/16 0000 Signed Impressions: Service Date/Time: Tuesday, April 26, 2016 18:06 - CONCLUSION: 1. Minimal levoscoliosis of the lumbar spine with associated degenerative changes. Prominent disc spur most obvious at T7-T8 with some encroachment on the anterior epidural space. 2. However, the spinal canal appears to be adequate throughout without cord compromise. No acute fracture or listhesis. Sukhi Lizarraga MD Lumbar Spine MRI 04/26/16 0000 Signed Impressions: Service Date/Time: Tuesday, April 26, 2016 18:06 - CONCLUSION: 1. Degenerative disc disease most severe at the lumbosacral junction with near [id number] articulation and a diffuse disc bulge. 2. There is some narrowing of the spinal canal at L3-L4 and L4-L5. This is most severe at the L3-L4 level where there may be central nerve root compromise. 3. In addition, foraminal narrowing may be severe enough to compromise the left L3, left L4 and bilateral L5 nerve roots. This is predominantly due to facet hypertrophy. 4. Prominent disc spur at L5-S1 on the right encroaches on the lateral recess and may compromise the nerve root at right S1. 5. No acute osseous injury. Sukhi Lizarraga MD Cervical Spine MRI 04/26/16 0000 Signed Impressions: Service Date/Time: Tuesday, April 26, 2016 18:06 - CONCLUSION: Mild degenerative change throughout the cervical spine. There is left neural foraminal narrowing throughout the mid cervical spine. Sinan Roberts MD 1- Lumbar stenosis , plan is for lumbar laminectomy at L3, L4, L5 for decompression of the cauda equina tomorrow morning. OT/PT appreciated and following. He is now up with the walker. His gabapentin is being titrated up. 2- Fatty liver. Gi input appreciated, no evidence of CA at this time. ETOH abstinence was discussed. A follow up with his PCP at [facility] is planned. 3- DVT prophylaxis with SCDs when in bed, Total Minutes: 10 Wesley Escobar Apr 28, 2016 10:52
--- NOTE | 2016-04-28 14:15 | HHI.GIFU ---
Subjective Remarks Resting in bed. No complaints. States he is scheduled for surgery tomorrow. (Honey Pickett) Objective Vitals I&O Vital Signs Date Time Temp Pulse Resp B/P Pulse Ox O2 Delivery O2 Flow Rate FiO2 04/28/16 12:00 97.6 82 20 130/86 99 04/28/16 08:00 97.4 67 20 135/90 97 04/28/16 04:00 97.1 68 18 138/85 99 04/28/16 02:20 68 116/80 04/28/16 02:05 69 115/84 04/28/16 01:48 68 117/79 04/28/16 01:37 84 134/89 04/28/16 00:30 68 171/109 04/28/16 00:27 166/103 04/28/16 00:00 97.9 69 18 154/101 98 04/27/16 20:00 98.7 89 18 130/82 99 04/27/16 15:49 98.3 89 18 129/87 99 I/O 04/27/16 04/27/16 04/27/16 04/28/16 04/28/16 04/28/16 07:00 15:00 23:00 07:00 15:00 23:00 Intake Total 960 ml 480 ml 240 ml Output Total 1500 ml 200 ml 900 ml Balance -540 ml 480 ml 40 ml -900 ml Intake Oral 960 ml 480 ml 240 ml Output Urine Total 1500 ml 200 ml 900 ml # Voids 3 # Bowel Movements 1 Imaging Last Impressions Abdomen/Pelvis CT 04/27/16 0000 Signed Impressions: Service Date/Time: Wednesday, April 27, 2016 12:49 - CONCLUSION: 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 Clips in the region the prostate, degenerative changes primarily facets of the lower lumbar spine and a small 1.2 cm cyst lower pole right kidney. Felice Dong MD Chest X-Ray 04/26/162012 Signed Impressions: Service Date/Time: Tuesday, April 26, 2016 20:24 - CONCLUSION: No acute disease. iSnan Roberts MD Thoracic Spine MRI 04/26/16 0000 Signed Impressions: Service Date/Time: Tuesday, April 26, 2016 18:06 - CONCLUSION: 1. Minimal levoscoliosis of the lumbar spine with associated degenerative changes. Prominent disc spur most obvious at T7-T8 with some encroachment on the anterior epidural space. 2. However, the spinal canal appears to be adequate throughout without cord compromise. No acute fracture or listhesis. Sukhi Lizarraga MD Lumbar Spine MRI 04/26/16 0000 Signed Impressions: Service Date/Time: Tuesday, April 26, 2016 18:06 - CONCLUSION: 1. Degenerative disc disease most severe at the lumbosacral junction with near yirb-ew-[id number] articulation and a diffuse disc bulge. 2. There is some narrowing of the spinal canal at L3-L4 and L4-L5. This is most severe at the L3-L4 level where there may be central nerve root compromise. 3. In addition, foraminal narrowing may be severe enough to compromise the left L3, left L4 and bilateral L5 nerve roots. This is predominantly due to facet hypertrophy. 4. Prominent disc spur at L5-S1 on the right encroaches on the lateral recess and may compromise the nerve root at right S1. 5. No acute osseous injury. Sukhi Lizarraga MD Cervical Spine MRI 04/26/16 0000 Signed Impressions: Service Date/Time: Tuesday, April 26, 2016 18:06 - CONCLUSION: Mild degenerative change throughout the cervical spine. There is left neural foraminal narrowing throughout the mid cervical spine. Sinan Roberts MD Physical Exam HEENT: Normocephalic; atraumatic; no jaundice. CHEST: CTA CARDIAC: RRR ABDOMEN: Soft, nondistended, nontender; no hepatosplenomegaly; bowel sounds are present in all four quadrants. EXTREMITIES: No clubbing, cyanosis, or edema. SKIN: Normal; no rash; no jaundice. 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 Tremors to all extremities, more pronounced on right side (PickettHoney CLEAR COAT SPRAYER) Assessment and Plan Plan ASSESSMENT: - Elevated LFTs. He was noted to have elevated LFTs on admission with a total bilirubin of 3.5, AST 207, ALT 118, alkaline phosphatase 74. Of note his albumin was 3.9, platelets 87, and PT 11.8 with an INR of 1.1 and a PTT of 26.3. The patient denies any known history of liver cirrhosis or other liver disease such as hepatitis in himself or other family members. He does drink 4 beers daily. He was recently started on any medication but cannot recall what this was. He only occasionally uses acetaminophen. No GI symptoms. 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 Clips in the region the prostate, degenerative changes primarily facets of the lower lumbar spine and a small 1.2 cm cyst lower pole right kidney. Iron saturation 37.3%, Ferritin 1595, AFP 7.6, Alpha 1 Antitrypsin pending, Ceruloplasmin pending, GÉNESIS/ASMA/AMA pending. Hepatitis profile negative. - RLE weakness with spinal stenosis at L3-L4 and L4-L5 with central nerve root compromise. S/P NSx and the plan is for him to undergo a lumbar decompression from L3 to L5. NSx following, states scheduled for surgery tomorrow at 8am. - Tremors. Pt states that he has had this since he was a child, worse on the right. States that he has been able to cope by teaching himself to write with his left hand. He reports that he was diagnosed with Parkinson 's at [facility] and is not on medication and that he has not had any progression of his disease since childhood. PLAN: - ANIVAL - Await GÉNESIS, ASMA, AMA - Await Ceruloplasmin, Alpha 1 Antitrypsin - Monitor labs - Avoid hepatotoxic meds - Supportive care - Further recommendations to follow based on results of above - Pt seen and examined by Dr. Bland and myself and this note is written on his behalf (Honey Pickett) Physician Comments agree with above (Paola Bland MD) Honey Pickett Apr 28, 2016 14:15 Paola Bland MD Apr 28, 2016 20:19
[2016-04-28] MEDS: GABAPENTIN 400 MG CAP PO SCH ×2 (14:45→20:29)
[2016-04-28] MEDS: FOLIC ACID 1 MG TAB PO SCH (14:45)
[2016-04-28] MEDS: THIAMINE INJ 100 MG in SODIUM CHLORIDE 0.9% INJ 100 ML IV SCH (14:45)
[2016-04-28] MEDS: methylPREDNISolone SOD SUCC 125 MG/2 ML VIAL IM SCH (16:52)
[2016-04-28] MEDS: ALPRAZolam 0.25 MG TAB PO PRN (22:35)
[2016-04-28] MEDS: oxyCODONE/ACETAMINOPHEN 5 MG/325 MG TAB PO PRN (22:36)
[2016-04-28] MEDS: SODIUM CHLOR 0.9% 1000 ML INJ 1,000 ML IV SCH (23:04)
[2016-04-29] VITALS (8 sets, daily range): BP systolic 122–177; BP diastolic 60–101; PULSE 71–97; RESP 16–20; TEMP 96.9–97.4; O2SAT 96–98
[2016-04-29] MEDS: ENALAPRILAT 1.25 MG/ML VIAL IV PUSH PRN ×2 (03:54→17:20)
[2016-04-29] MEDS ORDERED: THROMBIN (TOPICAL) 5,000 UNIT VIAL ONE (07:32)
[2016-04-29] MEDS ORDERED: GELFOAM SIZE 100 ONE (07:32)
[2016-04-29] MEDS ORDERED: LIDOCAINE 1%/EPINEPHrine 1:100,000 SOLN 30 ML VIAL ONE (07:32)
[2016-04-29] MEDS ORDERED: BUPIVACAINE HCL PF 0.5% 30 ML VIAL ONE (07:32)
[2016-04-29] MEDS ORDERED: ceFAZolin 2 GM PREMIX 50 ML ONE (08:44)
[2016-04-29] MEDS ORDERED: ARTIFICIAL TEARS OPTH OINT 3.5 APPLIC/3.5 GM TUBO ONE (08:52)
[2016-04-29] MEDS ORDERED: MIDAZOLAM HCL 5 MG/5 ML VIAL ONE (08:52)
[2016-04-29] MEDS ORDERED: fentaNYL CITRATE 250 MCG/5 ML AMP ONE ×2 (08:52)
[2016-04-29] MEDS ORDERED: FAMOTIDINE 20 MG/2 ML VIAL ONE (08:52)
[2016-04-29] MEDS: SODIUM CHLORIDE 0.9% FLUSH 5 ML FLUSH IV FLUSH SCH ×2 (09:00→22:18)
[2016-04-29] MEDS: THIAMINE INJ 100 MG in SODIUM CHLORIDE 0.9% INJ 100 ML IV SCH (09:00)
[2016-04-29] MEDS: GABAPENTIN 400 MG CAP PO SCH ×2 (09:00→22:11)
[2016-04-29] MEDS: PANTOPRAZOLE SOD 40 MG DELAYED RELEASE TAB PO SCH (09:00)
[2016-04-29] MEDS: NAPROXEN 500 MG TAB PO SCH ×2 (09:00→23:05)
[2016-04-29] MEDS: FOLIC ACID 1 MG TAB PO SCH (09:00)
[2016-04-29] MEDS ORDERED: PROPOFOL 200 MG/20 ML AMP IV ONE (09:08)
[2016-04-29] MEDS ORDERED: LACTATED RINGER'S 1000 ML INJ 1,000 ML IV ONE (09:08)
[2016-04-29] MEDS ORDERED: ONDANSETRON HCL 4 MG/2 ML VIAL IV PUSH ONE (09:08)
[2016-04-29] MEDS ORDERED: NEOSTIGMINE 3 MG/3 ML SYR IV ONE (09:08)
[2016-04-29] MEDS ORDERED: ePHEDrine/NS 50 MG/5 ML SYR IV ONE (09:08)
[2016-04-29] MEDS ORDERED: ceFAZolin 2 GM PREMIX 50 ML IV ONE (10:45)
[2016-04-29] MEDS ORDERED: ceFAZolin INJ 1,000 MG VIAL IV ONE (12:50)
--- NOTE | 2016-04-29 13:23 | RADRPT ---
EXAM DATE/TIME: 04/29/2016 09:16 [place] COMPARISON: No previous studies available for comparison. INDICATIONS : Herniated disk, laminectomy L3-4, L4-5. MEDICAL HISTORY : None. SURGICAL HISTORY : None. ENCOUNTER: Initial ACUITY: 1 day PAIN SCORE: 0/10 LOCATION: Lumbar spine. FINDINGS: Lateral matrix view in the OR demonstrates posterior marker projection the more caudad towards L5-S1 and possibly one towards the L3 vertebral body. CONCLUSION: Localization as described Felice Dong MD on April 29, 2016 at 13:21 Board Certified Radiologist. This report was verified electronically.
[2016-04-29] MEDS ORDERED: DO NOT ADM ANY ANTICOAGULANT DRUGS XX PRN (13:26)
[2016-04-29] MEDS ORDERED: *hydrOXYzine 25 MG VIAL PERIprocedural Use ONLY IM ONE (13:35)
[2016-04-29] MEDS ORDERED: *morphine SULFATE 8 MG/ML PERIprocedure ONLY ONE (13:35)
[2016-04-29] MEDS ORDERED: *LABETALOL HCL 100 MG/20 ML VIAL PERIprocedural Use ONLY ONE (14:25)
--- NOTE | 2016-04-29 17:16 | HHI.GIFU ---
Subjective Remarks Had surgery earlier today. States pain is controlled. No GI symptoms Objective Vitals I&O Vital Signs Date Time Temp Pulse Resp B/P Pulse Ox O2 Delivery O2 Flow Rate FiO2 04/29/16 15:55 97.3 75 18 163/91 97 04/29/16 14:00 79 16 158/92 97 Nasal Cannula 2 04/29/16 13:45 101 16 178/111 96 Nasal Cannula 2 04/29/16 13:30 94 16 162/92 95 Nasal Cannula 2 04/29/16 13:25 98.1 95 16 156/90 96 Nasal Cannula 2 04/29/16 08:00 97.4 71 18 177/101 96 04/29/16 07:00 80 156/97 04/29/16 04:05 97.2 96 16 161/100 98 04/29/16 00:00 97.1 97 16 127/74 98 04/28/16 23:36 20 04/28/16 21:29 16 I/O 04/28/16 04/28/16 04/28/16 04/29/16 04/29/16 04/29/16 07:00 15:00 23:00 07:00 15:00 23:00 Intake Total 240 ml 410 ml 0 ml 3000 ml Output Total 200 ml 900 ml 500 ml 1200 ml 1220 ml 400 ml Balance 40 ml -900 ml -90 ml -1200 ml 1780 ml -400 ml Intake Oral 240 ml 300 ml 0 ml 0 ml IV Total 110 ml 200 ml Other 2800 ml Output Urine Total 200 ml 900 ml 500 ml 1200 ml 200 ml 400 ml Drainage Total 20 ml Estimated Blood Loss 400 ml Other 600 ml # Voids 1 # Bowel Movements 0 0 1 Imaging Last Impressions Lumbar Spine X-Ray 04/29/16 0000 Signed Impressions: Service Date/Time: Friday, April 29, 2016 09:16 - CONCLUSION: Localization as described Felice Dong MD Abdomen/Pelvis CT 04/27/16 0000 Signed Impressions: Service Date/Time: Wednesday, April 27, 2016 12:49 - CONCLUSION: 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 Clips in the region the prostate, degenerative changes primarily facets of the lower lumbar spine and a small 1.2 cm cyst lower pole right kidney. Felice Dong MD Chest X-Ray 04/26/162012 Signed Impressions: Service Date/Time: Tuesday, April 26, 2016 20:24 - CONCLUSION: No acute disease. Sinan Roberts MD Thoracic Spine MRI 04/26/16 0000 Signed Impressions: Service Date/Time: Tuesday, April 26, 2016 18:06 - CONCLUSION: 1. Minimal levoscoliosis of the lumbar spine with associated degenerative changes. Prominent disc spur most obvious at T7-T8 with some encroachment on the anterior epidural space. 2. However, the spinal canal appears to be adequate throughout without cord compromise. No acute fracture or listhesis. Sukhi Lizarraga MD Lumbar Spine MRI 04/26/16 0000 Signed Impressions: Service Date/Time: Tuesday, April 26, 2016 18:06 - CONCLUSION: 1. Degenerative disc disease most severe at the lumbosacral junction with near qxus-sz-[id number] articulation and a diffuse disc bulge. 2. There is some narrowing of the spinal canal at L3-L4 and L4-L5. This is most severe at the L3-L4 level where there may be central nerve root compromise. 3. In addition, foraminal narrowing may be severe enough to compromise the left L3, left L4 and bilateral L5 nerve roots. This is predominantly due to facet hypertrophy. 4. Prominent disc spur at L5-S1 on the right encroaches on the lateral recess and may compromise the nerve root at right S1. 5. No acute osseous injury. Sukhi Lizarraga MD Cervical Spine MRI 04/26/16 0000 Signed Impressions: Service Date/Time: Tuesday, April 26, 2016 18:06 - CONCLUSION: Mild degenerative change throughout the cervical spine. There is left neural foraminal narrowing throughout the mid cervical spine. Sinan Roberts MD Physical Exam HEENT: Normocephalic; atraumatic; no jaundice. CHEST: CTA CARDIAC: RRR ABDOMEN: Soft, nondistended, nontender; no hepatosplenomegaly; bowel sounds are present in all four quadrants. EXTREMITIES: No clubbing, cyanosis, or edema. SKIN: Normal; no rash; no jaundice. [employer]: Right lower extremity weakness; alert and oriented times three. Tremors to all extremities, more pronounced on right side Assessment and Plan Plan ASSESSMENT: - Elevated LFTs. He was noted to have elevated LFTs on admission with a total bilirubin of 3.5, AST 207, ALT 118, alkaline phosphatase 74. Of note his albumin was 3.9, platelets 87, and PT 11.8 with an INR of 1.1 and a PTT of 26.3. The patient denies any known history of liver cirrhosis or other liver disease such as hepatitis in himself or other family members. He does drink 4 beers daily. He was recently started on any medication but cannot recall what this was. He only occasionally uses acetaminophen. No GI symptoms. 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 Clips in the region the prostate, degenerative changes primarily facets of the lower lumbar spine and a small 1.2 cm cyst lower pole right kidney. Iron saturation 37.3%, Ferritin 1595, AFP 7.6, Alpha 1 Antitrypsin pending, Ceruloplasmin pending, GÉNESIS negative/ ASMA negative/AMA pending. Hepatitis profile negative. - RLE weakness with spinal stenosis at L3-L4 and L4-L5 with central nerve root compromise. S/P lumbar decompression from L3 to L5 (04/29) per NSx - Tremors. Pt states that he has had this since he was a child, worse on the right. States that he has been able to cope by teaching himself to write with his left hand. He reports that he was diagnosed with Parkinson 's at [facility] and is not on medication and that he has not had any progression of his disease since childhood. PLAN: - ANIVAL - Await AMA - Await Ceruloplasmin, Alpha 1 Antitrypsin - LFT in am - Avoid hepatotoxic meds - Supportive care - Further recommendations to follow based on results of above - Pt seen and examined by Dr. Bland and myself and this note is written on his behalf Honey Pickett Apr 29, 2016 17:16
[2016-04-29] MEDS: methylPREDNISolone SOD SUCC 125 MG/2 ML VIAL IM SCH (17:21)
[2016-04-29] MEDS: oxyCODONE/ACETAMINOPHEN 5 MG/325 MG TAB PO PRN (22:11)
[2016-04-29] MEDS: SODIUM CHLOR 0.9% 1000 ML INJ 1,000 ML IV SCH (23:06)
[2016-04-30 00:16] VITALS: BP 113/67; PULSE 101; RESP 20; TEMP 98.8; O2SAT 94
[2016-04-30 04:42] VITALS: BP 147/93; PULSE 77; RESP 20; TEMP 97.5; O2SAT 97
[2016-04-30 08:18] LABS: INDIRECT BILIRUBIN 0.7 MG/DL (0.0-0.8); TOTAL BILIRUBIN ADULT 1.3 MG/DL (0.2-1.0)
[2016-04-30 08:41] VITALS: BP 151/97; PULSE 74; RESP 20; TEMP 96.6; O2SAT 100
[2016-04-30] MEDS: FOLIC ACID 1 MG TAB PO SCH (08:42)
[2016-04-30] MEDS: ALPRAZolam 0.25 MG TAB PO PRN ×2 (08:42→21:59)
[2016-04-30] MEDS: GABAPENTIN 400 MG CAP PO SCH ×2 (08:42→21:59)
[2016-04-30] MEDS: PANTOPRAZOLE SOD 40 MG DELAYED RELEASE TAB PO SCH (08:42)
[2016-04-30] MEDS: NAPROXEN 500 MG TAB PO SCH (08:42)
[2016-04-30] MEDS: THIAMINE INJ 100 MG in SODIUM CHLORIDE 0.9% INJ 100 ML IV SCH (08:44)
[2016-04-30] MEDS: SODIUM CHLORIDE 0.9% FLUSH 5 ML FLUSH IV FLUSH SCH ×2 (08:44→21:59)
[2016-04-30 12:10] VITALS: BP 118/80; PULSE 90; RESP 20; TEMP 97.2; O2SAT 97
[2016-04-30] MEDS: SODIUM CHLOR 0.9% 1000 ML INJ 1,000 ML IV SCH (14:46)
--- NOTE | 2016-04-30 15:35 | HHI.NSPN ---
History Chief Complaint: cramping in thr right leg Interval History 50 yr old with essential tremor and tremor dominant PD presented with a fall. He is very weak and numb in the right leg. Lumbar stenosis was evident on MRI but he was found on pre-op testing to have fatty liver and abnormal LFTs. GI input is appreciated. He he is now ready to procedure with lumbar decompression surgery. 04/30/16 Day 1 after L3 to L5 laminectomy, large chronic epidural hematoma was found. He has improved in the right foot after surgery but remains very unsteady and shaky. He is alert and willing to work with rehab. Review of Systems General: Negative for: fever, chills, insomnia Respiratory: Negative for: shortness of breath, cough, sputum Cardiovascular: Negative for: chest pain, palpitations, orthopnea Gastrointestinal: Negative for: nausea, vomitting, diarrhea, constipation Genitourinary: Negative for: urinary burning, urinary frequency, urinary urgency Exam Results Vital Signs Date Time Temp Pulse Resp B/P Pulse Ox O2 Delivery O2 Flow Rate FiO2 04/30/16 12:10 97.2 90 20 118/80 97 04/29/16 14:00 Nasal Cannula 2 Intake and Output 04/29/16 04/29/16 04/30/16 08:00 16:00 00:00 Intake Total 0 ml 3000 ml Output Total 1200 ml 1620 ml 1250 ml Balance -1200 ml 1380 ml -1250 ml Physical Examination Sitting on the edge of the bed alert and interactive, speech clear, eomi, No pronator drift, no bradykinesia, normal finger taps bilaterally but better on the left than the right. Dysmetria, right sided Weakness right hip felxor4/5, quad 4/5, ant tib 0/5, gastroc 4/5 Weakness in the left hip flexor 4+/5, quad 5/5, ant tib 5/5, gastroc 5/5 Numbness mostly right L5/S1 Reflexes are present 2/4 in the left patella and ankle, 1/4 in the right patella and ankle Gait very unsteady, use of the walker is very difficult with the lan and the IV wound dry Medical Decision Making Impression and Plan Last Impressions Abdomen/Pelvis CT 04/27/16 0000 Signed Impressions: Service Date/Time: Wednesday, April 27, 2016 12:49 - CONCLUSION: 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 Clips in the region the prostate, degenerative changes primarily facets of the lower lumbar spine and a small 1.2 cm cyst lower pole right kidney. Felice Dong MD Chest X-Ray 04/26/162012 Signed Impressions: Service Date/Time: Tuesday, April 26, 2016 20:24 - CONCLUSION: No acute disease. Sinan Roberts MD Thoracic Spine MRI 04/26/16 0000 Signed Impressions: Service Date/Time: Tuesday, April 26, 2016 18:06 - CONCLUSION: 1. Minimal levoscoliosis of the lumbar spine with associated degenerative changes. Prominent disc spur most obvious at T7-T8 with some encroachment on the anterior epidural space. 2. However, the spinal canal appears to be adequate throughout without cord compromise. No acute fracture or listhesis. Sukhi Lizarraga MD Lumbar Spine MRI 04/26/16 0000 Signed Impressions: Service Date/Time: Tuesday, April 26, 2016 18:06 - CONCLUSION: 1. Degenerative disc disease most severe at the lumbosacral junction with near [id number] articulation and a diffuse disc bulge. 2. There is some narrowing of the spinal canal at L3-L4 and L4-L5. This is most severe at the L3-L4 level where there may be central nerve root compromise. 3. In addition, foraminal narrowing may be severe enough to compromise the left L3, left L4 and bilateral L5 nerve roots. This is predominantly due to facet hypertrophy. 4. Prominent disc spur at L5-S1 on the right encroaches on the lateral recess and may compromise the nerve root at right S1. 5. No acute osseous injury. Sukhi Lizarraga MD Cervical Spine MRI 04/26/16 0000 Signed Impressions: Service Date/Time: Tuesday, April 26, 2016 18:06 - CONCLUSION: Mild degenerative change throughout the cervical spine. There is left neural foraminal narrowing throughout the mid cervical spine. Sinan Roberts MD 1- Lumbar stenosis , lumbar laminectomy at L3, L4, L5 for decompression of the cauda equina well tolerated. Epidural hematoma was found. OT/PT appreciated and following. He is now up with the walker but very unsteady. rehab was consulted for inpatient rehab. 2- Fatty liver. Gi input appreciated, no evidence of CA at this time. ETOH abstinence was discussed. A follow up with his PCP at [facility] is planned. 3- DVT prophylaxis with SCDs when in bed, Total Minutes: 10 Wesley Escobar Apr 30, 2016 15:35
[2016-04-30 15:54] LABS: MITOCHONDRIAL ABS LESS THAN 20.0 U (())
[2016-04-30 16:15] VITALS: BP 129/79; PULSE 93; RESP 18; TEMP 98; O2SAT 98
[2016-04-30 21:14] VITALS: BP 171/97; PULSE 86; RESP 20; TEMP 98.1; O2SAT 99
[2016-04-30] MEDS: oxyCODONE/ACETAMINOPHEN 5 MG/325 MG TAB PO PRN (22:01)
[2016-04-30] MEDS: ENALAPRILAT 1.25 MG/ML VIAL IV PUSH PRN (22:06)
[2016-05-01] VITALS (9 sets, daily range): BP systolic 101–156; BP diastolic 65–90; PULSE 79–100; RESP 18; TEMP 98.3–100.8; O2SAT 94–98
[2016-05-01] MEDS: oxyCODONE/ACETAMINOPHEN 5 MG/325 MG TAB PO PRN ×5 (05:31→23:06)
[2016-05-01] MEDS: PANTOPRAZOLE SOD 40 MG DELAYED RELEASE TAB PO SCH (08:39)
[2016-05-01] MEDS: PROPRANOLOL HCL LA 60 MG CAP PO SCH (08:39)
[2016-05-01] MEDS: GABAPENTIN 400 MG CAP PO SCH ×2 (08:39→22:58)
[2016-05-01] MEDS: ALPRAZolam 0.25 MG TAB PO PRN ×2 (08:40→22:58)
[2016-05-01] MEDS: VITAMIN B CMPLX/VITC/FOLIC AC CAP PO SCH (08:40)
[2016-05-01 08:42] LABS: AUTOMATED NEUTROPHIL # 2.9 TH/MM3 (1.8-7.7); BASOPHIL % 0.6 % (0.0-2.0); EOSINOPHIL % 0.8 % (0.0-4.0); HEMATOCRIT 30.5 % (39.0-51.0); HEMO FLAGS DIFF FINAL; LYMPH % 17.3 % (9.0-44.0); LYMPHOCYTE # 0.8 TH/MM3 (1.0-4.8); MEAN CELL VOLUME 93.7 FL (80.0-100.0); MEAN CORPUSCULAR HEMOGLOBIN 31.9 PG (27.0-34.0); MONO % 19.6 % (0.0-8.0); NEUT % 61.7 % (16.0-70.0); PLATELET COUNT 129 TH/MM3 (150-450); RED BLOOD COUNT 3.26 MIL/MM3 (4.50-5.90); RED CELL DISTRIBUTION WIDTH 14.9 % (11.6-17.2); WHITE BLOOD COUNT 4.7 TH/MM3 (4.0-11.0)
[2016-05-01 08:44] LABS: PROTHROMBIN TIME - PATIENT 11.2 SEC (9.8-11.6)
[2016-05-01] MEDS: SODIUM CHLORIDE 0.9% FLUSH 5 ML FLUSH IV FLUSH SCH ×2 (09:00→22:58)
[2016-05-01 09:01] LABS: ALT (GPT) 100 U/L (12-78); ANION GAP 8 MEQ/L (5-15); AST (GOT) 94 U/L (15-37); BICARBONATE 25.4 MEQ/L (21.0-32.0); BLOOD UREA NITROGEN 9 MG/DL (7-18); CHLORIDE 107 MEQ/L (98-107); GLOMERULAR FILTRATION RATE 160 ML/MIN (>89); POTASSIUM 3.1 MEQ/L (3.5-5.1); SODIUM (NA) 140 MEQ/L (136-145)
[2016-05-01 09:02] LABS: ALKALINE PHOSPHATASE 45 U/L (45-117); TOTAL BILIRUBIN ADULT 2.2 MG/DL (0.2-1.0)
[2016-05-01] MEDS ORDERED: POTASSIUM CHLORIDE 20 MEQ CONTROLLED RELEASE TAB PO ONE (12:00)
--- NOTE | 2016-05-01 15:43 | HHI.NSPN ---
History Chief Complaint: i am doing good Interval History 50 yr old with essential tremor and tremor dominant PD presented with a fall. He is very weak and numb in the right leg. Lumbar stenosis was evident on MRI but he was found on pre-op testing to have fatty liver and abnormal LFTs. GI input is appreciated. He he is now ready to procedure with lumbar decompression surgery. 04/30/16 Day 1 after L3 to L5 laminectomy, large chronic epidural hematoma was found. He has improved in the right foot after surgery but remains very unsteady and shaky. He is alert and willing to work with rehab. 05/01/16 Day 2 after laminectomy, pathology is negative for malignancy, he has not voided but his lan is out. PT/OT are working with him. He is starting to walk with the walker but remains very unsteady. Review of Systems General: Positive for: fever (low grade) Respiratory: Negative for: shortness of breath, cough, sputum Cardiovascular: Negative for: chest pain, palpitations, orthopnea Gastrointestinal: Negative for: nausea, vomitting, diarrhea, constipation Genitourinary: Negative for: urinary burning, urinary frequency, urinary urgency Exam Results Vital Signs Date Time Temp Pulse Resp B/P Pulse Ox O2 Delivery O2 Flow Rate FiO2 05/01/16 12:00 98.5 79 18 101/65 97 04/29/16 14:00 Nasal Cannula 2 Intake and Output 04/30/16 04/30/16 05/01/16 08:00 16:00 00:00 Intake Total 600 ml Output Total 430 ml Balance 170 ml Physical Examination Sitting on the edge of the bed alert and interactive, speech clear, eomi, mood irritable No pronator drift, no bradykinesia, normal finger taps bilaterally but better on the left than the right. Dysmetria, right sided Weakness right hip felxor4/5, quad 4/5, ant tib 0/5, gastroc 4/5 Weakness in the left hip flexor 4+/5, quad 5/5, ant tib 5/5, gastroc 5/5 Numbness mostly right L5/S1 Reflexes are present 2/4 in the left patella and ankle, 1/4 in the right patella and ankle Gait very unsteady, tends to drop down when sitting, poor core control, leans forward and drags the feet wound dry Lab, Micro, Other Results Laboratory Tests Test 05/01/16 08:00 White Blood Count 4.7 TH/MM3 Red Blood Count 3.26 MIL/MM3 Hemoglobin 10.4 GM/DL Hematocrit 30.5 % Mean Corpuscular Volume 93.7 FL Mean Corpuscular Hemoglobin 31.9 PG Mean Corpuscular Hemoglobin 34.0 % Concent Red Cell Distribution Width 14.9 % Platelet Count 129 TH/MM3 Mean Platelet Volume 9.1 FL Neutrophils (%) (Auto) 61.7 % Lymphocytes (%) (Auto) 17.3 % Monocytes (%) (Auto) 19.6 % Eosinophils (%) (Auto) 0.8 % Basophils (%) (Auto) 0.6 % Neutrophils # (Auto) 2.9 TH/MM3 Lymphocytes # (Auto) 0.8 TH/MM3 Monocytes # (Auto) 0.9 TH/MM3 Eosinophils # (Auto) 0.0 TH/MM3 Basophils # (Auto) 0.0 TH/MM3 CBC Comment DIFF FINAL Differential Comment Prothrombin Time 11.2 SEC Prothromb Time International 1.0 RATIO Ratio Sodium Level 140 MEQ/L Potassium Level 3.1 MEQ/L Chloride Level 107 MEQ/L Carbon Dioxide Level 25.4 MEQ/L Anion Gap 8 MEQ/L Blood Urea Nitrogen 9 MG/DL Creatinine 0.54 MG/DL Estimat Glomerular Filtration 160 ML/MIN Rate Random Glucose 104 MG/DL Calcium Level 8.6 MG/DL Total Bilirubin 2.2 MG/DL Aspartate Amino Transf 94 U/L (AST/SGOT) Alanine Aminotransferase 100 U/L (ALT/SGPT) Alkaline Phosphatase 45 U/L Total Protein 6.4 GM/DL Albumin 3.2 GM/DL Medical Decision Making Impression and Plan Last Impressions Abdomen/Pelvis CT 04/27/16 0000 Signed Impressions: Service Date/Time: Wednesday, April 27, 2016 12:49 - CONCLUSION: 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 Clips in the region the prostate, degenerative changes primarily facets of the lower lumbar spine and a small 1.2 cm cyst lower pole right kidney. Felice Dong MD Chest X-Ray 04/26/162012 Signed Impressions: Service Date/Time: Tuesday, April 26, 2016 20:24 - CONCLUSION: No acute disease. Sinan Roberts MD Thoracic Spine MRI 04/26/16 0000 Signed Impressions: Service Date/Time: Tuesday, April 26, 2016 18:06 - CONCLUSION: 1. Minimal levoscoliosis of the lumbar spine with associated degenerative changes. Prominent disc spur most obvious at T7-T8 with some encroachment on the anterior epidural space. 2. However, the spinal canal appears to be adequate throughout without cord compromise. No acute fracture or listhesis. Sukhi Lizarraga MD Lumbar Spine MRI 04/26/16 0000 Signed Impressions: Service Date/Time: Tuesday, April 26, 2016 18:06 - CONCLUSION: 1. Degenerative disc disease most severe at the lumbosacral junction with near [id number] articulation and a diffuse disc bulge. 2. There is some narrowing of the spinal canal at L3-L4 and L4-L5. This is most severe at the L3-L4 level where there may be central nerve root compromise. 3. In addition, foraminal narrowing may be severe enough to compromise the left L3, left L4 and bilateral L5 nerve roots. This is predominantly due to facet hypertrophy. 4. Prominent disc spur at L5-S1 on the right encroaches on the lateral recess and may compromise the nerve root at right S1. 5. No acute osseous injury. Sukhi Lizarraga MD Cervical Spine MRI 04/26/16 0000 Signed Impressions: Service Date/Time: Tuesday, April 26, 2016 18:06 - CONCLUSION: Mild degenerative change throughout the cervical spine. There is left neural foraminal narrowing throughout the mid cervical spine. Sinan Roberts MD 1- Lumbar stenosis , lumbar laminectomy at L3, L4, L5 for decompression of the cauda equina well tolerated. Epidural hematoma was found.Path is negative for malignancy. OT/PT appreciated and following. He is now up with the walker but very unsteady. rehab was consulted for inpatient rehab. 2- Fatty liver. Gi input appreciated, no evidence of CA at this time. ETOH abstinence was discussed. A follow up with his PCP at [facility] is planned. 3- DVT prophylaxis with SCDs when in bed, Total Minutes: 10 Wesley Escobar May 01, 2016 15:43
[2016-05-02] VITALS (8 sets, daily range): BP systolic 103–174; BP diastolic 55–95; PULSE 79–95; RESP 16–19; TEMP 96.2–100.5; O2SAT 96–100
[2016-05-02] MEDS: oxyCODONE/ACETAMINOPHEN 5 MG/325 MG TAB PO PRN (06:55)
[2016-05-02] MEDS ORDERED: MAGNESIUM HYDROXIDE SUSP 30 ML CUP PO PRN (09:00)
[2016-05-02] MEDS: VITAMIN B CMPLX/VITC/FOLIC AC CAP PO SCH (09:03)
[2016-05-02] MEDS: GABAPENTIN 400 MG CAP PO SCH ×2 (09:03→21:01)
[2016-05-02] MEDS: SODIUM CHLORIDE 0.9% FLUSH 5 ML FLUSH IV FLUSH SCH ×2 (09:03→21:01)
[2016-05-02] MEDS: PANTOPRAZOLE SOD 40 MG DELAYED RELEASE TAB PO SCH (09:03)
[2016-05-02] MEDS: PROPRANOLOL HCL LA 60 MG CAP PO SCH (09:03)
--- NOTE | 2016-05-02 10:26 | HHI.FF ---
Face to Face Verification Diagnosis: (1) lumbar epidural hematoma (2) Head injury without skull fracture Physical Therapy Order: Evaluate and Treat, Improve ambulation, Strength and gait training I have seen patient Sedrick Salgado on 05/02/16. My clinical findings support the need for the requested home health care services because: Ltd mobility - disease progression Deconditioned w/ increased weakness Limited ability to care for self High risk of falls I certify that my clinical findings support that this patient is homebound because of impaired mobility Post-op weakness Unsteady gait/balance Unsafe to leave home unassisted Wesley Escobar May 02, 2016 10:25
--- NOTE | 2016-05-02 10:28 | HHI.NSPN ---
History Chief Complaint: i am doing good Interval History 50 yr old with essential tremor and tremor dominant PD presented with a fall. He is very weak and numb in the right leg. Lumbar stenosis was evident on MRI but he was found on pre-op testing to have fatty liver and abnormal LFTs. GI input is appreciated. He he is now ready to procedure with lumbar decompression surgery. 04/30/16 Day 1 after L3 to L5 laminectomy, large chronic epidural hematoma was found. He has improved in the right foot after surgery but remains very unsteady and shaky. He is alert and willing to work with rehab. 05/01/16 Day 2 after laminectomy, pathology is negative for malignancy, he has not voided but his lan is out. PT/OT are working with him. He is starting to walk with the walker but remains very unsteady. 05/02/16 He is improving, voiding with the urinal and commode, but remains very unsteady and at high risk for falls. Review of Systems General: Negative for: fever, chills, insomnia Respiratory: Negative for: shortness of breath, cough, sputum Cardiovascular: Negative for: chest pain, palpitations, orthopnea Gastrointestinal: Negative for: nausea, vomitting, diarrhea, constipation Genitourinary: Negative for: urinary burning, urinary frequency, urinary urgency Exam Results Vital Signs Date Time Temp Pulse Resp B/P Pulse Ox O2 Delivery O2 Flow Rate FiO2 05/02/16 08:00 99.8 90 19 136/88 96 04/29/16 14:00 Nasal Cannula 2 Intake and Output 05/01/16 05/01/16 05/02/16 08:00 16:00 00:00 Intake Total 240 ml 960 ml Output Total 550 ml 500 ml 600 ml Balance -310 ml 460 ml -600 ml Physical Examination Sitting on the chair, speech clear, eomi, mood irritable No pronator drift, no bradykinesia, normal finger taps bilaterally but better on the left than the right. Dysmetria, right sided Weakness right hip felxor4/5, quad 4/5, ant tib 0/5, gastroc 4/5 Weakness in the left hip flexor 4+/5, quad 5/5, ant tib 5/5, gastroc 5/5 Numbness mostly right L5/S1 Reflexes are present 2/4 in the left patella and ankle, 1/4 in the right patella and ankle Gait very unsteady, tends to drop down when sitting, poor core control, leans forward and drags the feet wound dry Medical Decision Making Impression and Plan Last Impressions Abdomen/Pelvis CT 04/27/16 0000 Signed Impressions: Service Date/Time: Wednesday, April 27, 2016 12:49 - CONCLUSION: 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 Clips in the region the prostate, degenerative changes primarily facets of the lower lumbar spine and a small 1.2 cm cyst lower pole right kidney. Felice Dong MD Chest X-Ray 04/26/162012 Signed Impressions: Service Date/Time: Tuesday, April 26, 2016 20:24 - CONCLUSION: No acute disease. Sinan Roberts MD Thoracic Spine MRI 04/26/16 0000 Signed Impressions: Service Date/Time: Tuesday, April 26, 2016 18:06 - CONCLUSION: 1. Minimal levoscoliosis of the lumbar spine with associated degenerative changes. Prominent disc spur most obvious at T7-T8 with some encroachment on the anterior epidural space. 2. However, the spinal canal appears to be adequate throughout without cord compromise. No acute fracture or listhesis. Sukhi Lizarraga MD Lumbar Spine MRI 04/26/16 0000 Signed Impressions: Service Date/Time: Tuesday, April 26, 2016 18:06 - CONCLUSION: 1. Degenerative disc disease most severe at the lumbosacral junction with near eluv-ll-oyfn articulation and a diffuse disc bulge. 2. There is some narrowing of the spinal canal at L3-L4 and L4-L5. This is most severe at the L3-L4 level where there may be central nerve root compromise. 3. In addition, foraminal narrowing may be severe enough to compromise the left L3, left L4 and bilateral L5 nerve roots. This is predominantly due to facet hypertrophy. 4. Prominent disc spur at L5-S1 on the right encroaches on the lateral recess and may compromise the nerve root at right S1. 5. No acute osseous injury. Sukhi Lizarraga MD Cervical Spine MRI 04/26/16 0000 Signed Impressions: Service Date/Time: Tuesday, April 26, 2016 18:06 - CONCLUSION: Mild degenerative change throughout the cervical spine. There is left neural foraminal narrowing throughout the mid cervical spine. Sinan Roberts MD 1- Lumbar stenosis , lumbar laminectomy at L3, L4, L5 for decompression of the cauda equina well tolerated. Epidural hematoma was found.Path is negative for malignancy. OT/PT appreciated and following. He is now up with the walker but very unsteady. rehab was consulted for inpatient rehab but therapy is recommending home PT/OT 2- Fatty liver. Gi input appreciated, no evidence of CA at this time. ETOH abstinence was discussed. A follow up with his PCP at [facility] is planned. 3- DVT prophylaxis with SCDs when in bed, Total Minutes: 10 Wesley Escobar May 02, 2016 10:28
[2016-05-02] MEDS: oxyCODONE HCL 10 MG CONTROLLED RELEASE TAB PO SCH ×2 (13:03→21:01)
[2016-05-02] MEDS: SENNOSIDES 8.6 MG TAB PO SCH ×2 (13:03→19:55)
[2016-05-02] MEDS: ALPRAZolam 0.25 MG TAB PO PRN (21:01)
[2016-05-03] VITALS (9 sets, daily range): BP systolic 119–164; BP diastolic 72–98; PULSE 73–86; RESP 17–18; TEMP 97.8–99.7; O2SAT 96–100
[2016-05-03] MEDS: SENNOSIDES 8.6 MG TAB PO SCH ×2 (08:27→20:56)
[2016-05-03] MEDS: PROPRANOLOL HCL LA 60 MG CAP PO SCH (08:27)
[2016-05-03] MEDS: oxyCODONE HCL 10 MG CONTROLLED RELEASE TAB PO SCH ×2 (08:27→20:56)
[2016-05-03] MEDS: VITAMIN B CMPLX/VITC/FOLIC AC CAP PO SCH (08:27)
[2016-05-03] MEDS: SODIUM CHLORIDE 0.9% FLUSH 5 ML FLUSH IV FLUSH SCH ×2 (08:27→20:55)
[2016-05-03] MEDS: PANTOPRAZOLE SOD 40 MG DELAYED RELEASE TAB PO SCH (08:27)
[2016-05-03] MEDS: GABAPENTIN 400 MG CAP PO SCH ×2 (08:28→20:55)
--- NOTE | 2016-05-03 09:49 | HHI.NSPN ---
History Chief Complaint: i had a good breakfast Interval History 50 yr old with essential tremor and tremor dominant PD presented with a fall. He is very weak and numb in the right leg. Lumbar stenosis was evident on MRI but he was found on pre-op testing to have fatty liver and abnormal LFTs. GI input is appreciated. He he is now ready to procedure with lumbar decompression surgery. 04/30/16 Day 1 after L3 to L5 laminectomy, large chronic epidural hematoma was found. He has improved in the right foot after surgery but remains very unsteady and shaky. He is alert and willing to work with rehab. 05/01/16 Day 2 after laminectomy, pathology is negative for malignancy, he has not voided but his lan is out. PT/OT are working with him. He is starting to walk with the walker but remains very unsteady. 05/02/16 He is improving, voiding with the urinal and commode, but remains very unsteady and at high risk for falls. 05/03/16 He is agreeable to continue OT/PT to try to go home next week with home PT. The wound is dressed and intact. He is voiding well. Review of Systems General: Negative for: fever, chills, insomnia Respiratory: Negative for: shortness of breath, cough, sputum Cardiovascular: Negative for: chest pain, palpitations, orthopnea Gastrointestinal: Negative for: nausea, vomitting, diarrhea, constipation Genitourinary: Negative for: urinary burning, urinary frequency, urinary urgency Exam Results Vital Signs Date Time Temp Pulse Resp B/P Pulse Ox O2 Delivery O2 Flow Rate FiO2 05/03/16 05:19 97.8 78 17 147/72 96 05/02/16 10:46 21 04/29/16 14:00 Nasal Cannula 2 Intake and Output 05/02/16 05/02/16 05/03/16 08:00 16:00 00:00 Intake Total 550 ml 240 ml Output Total 550 ml 700 ml Balance -550 ml 550 ml -460 ml Physical Examination Sitting on the chair, speech clear, eomi, mood irritable No pronator drift, no bradykinesia, normal finger taps bilaterally but better on the left than the right. Dysmetria, right sided Weakness right hip flexor4/5, quad 4/5, ant tib 0/5, gastroc 4/5 Weakness in the left hip flexor 4+/5, quad 5/5, ant tib 2/5, gastroc 5/5 Numbness mostly right L5/S1 Reflexes are present 2/4 in the left patella and ankle, 1/4 in the right patella and ankle Gait very unsteady, tends to drop down when sitting, poor core control, leans forward and drags the feet wound dry Medical Decision Making Impression and Plan Last Impressions Abdomen/Pelvis CT 04/27/16 0000 Signed Impressions: Service Date/Time: Wednesday, April 27, 2016 12:49 - CONCLUSION: 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 Clips in the region the prostate, degenerative changes primarily facets of the lower lumbar spine and a small 1.2 cm cyst lower pole right kidney. Felice Dong MD Chest X-Ray 04/26/162012 Signed Impressions: Service Date/Time: Tuesday, April 26, 2016 20:24 - CONCLUSION: No acute disease. Sinan Roberts MD Thoracic Spine MRI 04/26/16 0000 Signed Impressions: Service Date/Time: Tuesday, April 26, 2016 18:06 - CONCLUSION: 1. Minimal levoscoliosis of the lumbar spine with associated degenerative changes. Prominent disc spur most obvious at T7-T8 with some encroachment on the anterior epidural space. 2. However, the spinal canal appears to be adequate throughout without cord compromise. No acute fracture or listhesis. Sukhi Lizarraga MD Lumbar Spine MRI 04/26/16 0000 Signed Impressions: Service Date/Time: Tuesday, April 26, 2016 18:06 - CONCLUSION: 1. Degenerative disc disease most severe at the lumbosacral junction with near [id number] articulation and a diffuse disc bulge. 2. There is some narrowing of the spinal canal at L3-L4 and L4-L5. This is most severe at the L3-L4 level where there may be central nerve root compromise. 3. In addition, foraminal narrowing may be severe enough to compromise the left L3, left L4 and bilateral L5 nerve roots. This is predominantly due to facet hypertrophy. 4. Prominent disc spur at L5-S1 on the right encroaches on the lateral recess and may compromise the nerve root at right S1. 5. No acute osseous injury. Sukhi Lizarraga MD Cervical Spine MRI 04/26/16 0000 Signed Impressions: Service Date/Time: Tuesday, April 26, 2016 18:06 - CONCLUSION: Mild degenerative change throughout the cervical spine. There is left neural foraminal narrowing throughout the mid cervical spine. Sinan Roberts MD 1- Lumbar stenosis , lumbar laminectomy at L3, L4, L5 for decompression of the cauda equina well tolerated. Epidural hematoma was found.Path is negative for malignancy. OT/PT appreciated and following. He is now up with the walker but very unsteady. rehab was consulted for inpatient rehab but therapy is recommending home PT/OT 2- Fatty liver. Gi input appreciated, no evidence of CA at this time. ETOH abstinence was discussed. A follow up with his PCP at [facility] is planned. 3- DVT prophylaxis with SCDs when in bed, Total Minutes: 10 Wesley Escobar May 03, 2016 09:49
[2016-05-03] MEDS: ALPRAZolam 0.25 MG TAB PO PRN (23:20)
[2016-05-04] VITALS (7 sets, daily range): BP systolic 109–170; BP diastolic 69–98; PULSE 73–112; RESP 18; TEMP 98.6–100.3; O2SAT 95–98
[2016-05-04] MEDS: ENALAPRILAT 1.25 MG/ML VIAL IV PUSH PRN (04:59)
[2016-05-04] MEDS: SENNOSIDES 8.6 MG TAB PO SCH ×2 (07:53→21:00)
[2016-05-04] MEDS: PROPRANOLOL HCL LA 60 MG CAP PO SCH (07:54)
[2016-05-04] MEDS: VITAMIN B CMPLX/VITC/FOLIC AC CAP PO SCH (07:54)
[2016-05-04] MEDS: PANTOPRAZOLE SOD 40 MG DELAYED RELEASE TAB PO SCH (07:54)
[2016-05-04] MEDS: GABAPENTIN 400 MG CAP PO SCH ×2 (07:54→22:43)
[2016-05-04] MEDS: SODIUM CHLORIDE 0.9% FLUSH 5 ML FLUSH IV FLUSH SCH ×2 (07:54→22:41)
[2016-05-04] MEDS: oxyCODONE HCL 10 MG CONTROLLED RELEASE TAB PO SCH ×2 (07:54→22:43)
--- NOTE | 2016-05-04 09:27 | HHI.GIFU ---
Subjective Remarks Sitting up in bed eating breakfast, no complaints. No n/v/abdominal pain. ( Honey Pickett) Objective Vitals I&O Vital Signs Date Time Temp Pulse Resp B/P Pulse Ox O2 Delivery O2 Flow Rate FiO2 05/04/16 06:39 73 18 155/89 05/04/16 04:50 98.6 86 18 170/98 98 05/04/16 02:15 76 18 139/72 05/03/16 23:51 99.6 83 18 164/92 96 05/03/16 20:52 98.8 79 18 156/94 05/03/16 20:00 99.5 80 18 163/98 97 05/03/16 16:42 99.7 82 18 119/75 97 05/03/16 12:44 99.1 82 17 134/80 100 I/O 05/03/16 05/03/16 05/03/16 05/04/16 05/04/16 05/04/16 07:00 15:00 23:00 07:00 15:00 23:00 Intake Total 120 ml 840 ml 360 ml Output Total 975 ml 700 ml 800 ml Balance -855 ml 140 ml -440 ml Intake Oral 120 ml 840 ml 360 ml Output Urine Total 975 ml 700 ml 800 ml # Voids 3 # Bowel Movements 2 Imaging Last Impressions Lumbar Spine X-Ray 04/29/16 0000 Signed Impressions: Service Date/Time: Friday, April 29, 2016 09:16 - CONCLUSION: Localization as described Felice Dong MD Abdomen/Pelvis CT 04/27/16 0000 Signed Impressions: Service Date/Time: Wednesday, April 27, 2016 12:49 - CONCLUSION: 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 Clips in the region the prostate, degenerative changes primarily facets of the lower lumbar spine and a small 1.2 cm cyst lower pole right kidney. Felice Dong MD Chest X-Ray 04/26/162012 Signed Impressions: Service Date/Time: Tuesday, April 26, 2016 20:24 - CONCLUSION: No acute disease. Sinan Roberts MD Thoracic Spine MRI 04/26/16 0000 Signed Impressions: Service Date/Time: Tuesday, April 26, 2016 18:06 - CONCLUSION: 1. Minimal levoscoliosis of the lumbar spine with associated degenerative changes. Prominent disc spur most obvious at T7-T8 with some encroachment on the anterior epidural space. 2. However, the spinal canal appears to be adequate throughout without cord compromise. No acute fracture or listhesis. Sukhi Lizarraga MD Lumbar Spine MRI 04/26/16 0000 Signed Impressions: Service Date/Time: Tuesday, April 26, 2016 18:06 - CONCLUSION: 1. Degenerative disc disease most severe at the lumbosacral junction with near [id number] articulation and a diffuse disc bulge. 2. There is some narrowing of the spinal canal at L3-L4 and L4-L5. This is most severe at the L3-L4 level where there may be central nerve root compromise. 3. In addition, foraminal narrowing may be severe enough to compromise the left L3, left L4 and bilateral L5 nerve roots. This is predominantly due to facet hypertrophy. 4. Prominent disc spur at L5-S1 on the right encroaches on the lateral recess and may compromise the nerve root at right S1. 5. No acute osseous injury. Sukhi Lizarraga MD Cervical Spine MRI 04/26/16 0000 Signed Impressions: Service Date/Time: Tuesday, April 26, 2016 18:06 - CONCLUSION: Mild degenerative change throughout the cervical spine. There is left neural foraminal narrowing throughout the mid cervical spine. Sinan Roberts MD Physical Exam HEENT: Normocephalic; atraumatic; no jaundice. CHEST: CTA CARDIAC: RRR ABDOMEN: Soft, nondistended, nontender; no hepatosplenomegaly; bowel sounds are present in all four quadrants. EXTREMITIES: No clubbing, cyanosis, or edema. SKIN: Normal; no rash; no jaundice. WIDE LOAD ESCORT: Right lower extremity weakness; alert and oriented times three. Tremors to all extremities, more pronounced on right side (PickettHoney PLANT MAINTENANCE WORKER) Assessment and Plan Plan ASSESSMENT: - Elevated LFTs. He was noted to have elevated LFTs on admission with a total bilirubin of 3.5, AST 207, ALT 118, alkaline phosphatase 74. Of note his albumin was 3.9, platelets 87, and PT 11.8 with an INR of 1.1 and a PTT of 26.3. The patient denies any known history of liver cirrhosis or other liver disease such as hepatitis in himself or other family members. He does drink 4 beers daily. He was recently started on any medication but cannot recall what this was. He only occasionally uses acetaminophen. No GI symptoms. 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 Clips in the region the prostate, degenerative changes primarily facets of the lower lumbar spine and a small 1.2 cm cyst lower pole right kidney. Iron saturation 37.3%, Ferritin 1595, AFP 7.6, Alpha 1 Antitrypsin 155, Ceruloplasmin 18, GÉNESIS negative/ASMA negative/AMA <20. Hepatitis profile negative. T. Bili 2.2, AST 94, ALT 100, Alk Phosph 45. D/W patient importance of complete ETOH cessation, verbalizes understanding - RLE weakness with spinal stenosis at L3-L4 and L4-L5 with central nerve root compromise. S/P lumbar decompression from L3 to L5 (04/29) per NSx - Tremors. Pt states that he has had this since he was a child, worse on the right. States that he has been able to cope by teaching himself to write with his left hand. He reports that he was diagnosed with Parkinson 's at [facility] and is not on medication and that he has not had any progression of his disease since childhood. PLAN: - ANIVAL - Monitor LFT - Avoid hepatotoxic meds - Complete ETOH Cessation, d/w patient and he verbalizes understanding - FU MARYJO 2 weeks - Pt seen and examined by Dr. Cervantes and myself and this note is written on his behalf (Honey Pickett) Physician Comments Patient seen and examined Agree with above Continue with current supportive care Monitor labs (Dustin Cervantes MD) Honey Pickett May 04, 2016 09:27 Dustin Cervantes MD May 04, 2016 23:04
[2016-05-04] MEDS ORDERED: WALKER WHEELS/F1 MIS (10:47)
[2016-05-04] MEDS ORDERED: OXYC-259 PO (10:51)
[2016-05-04] MEDS ORDERED: PANT40TA3 PO (10:51)
[2016-05-04] MEDS ORDERED: SENN8.6T15 PO (10:51)
[2016-05-04] MEDS ORDERED: PROP60 PO (10:51)
[2016-05-04] MEDS ORDERED: ALPR.25 PO (10:51)
[2016-05-04] MEDS ORDERED: NEPHRO PO (10:51)
[2016-05-04] MEDS ORDERED: NEUR400C PO (10:51)
--- NOTE | 2016-05-04 10:54 | HHI.NSPN ---
History Chief Complaint: no complaint Interval History 50 yr old with essential tremor and tremor dominant PD presented with a fall. He is very weak and numb in the right leg. Lumbar stenosis was evident on MRI but he was found on pre-op testing to have fatty liver and abnormal LFTs. GI input is appreciated. He he is now ready to procedure with lumbar decompression surgery. 04/30/16 Day 1 after L3 to L5 laminectomy, large chronic epidural hematoma was found. He has improved in the right foot after surgery but remains very unsteady and shaky. He is alert and willing to work with rehab. 05/01/16 Day 2 after laminectomy, pathology is negative for malignancy, he has not voided but his lan is out. PT/OT are working with him. He is starting to walk with the walker but remains very unsteady. 05/02/16 He is improving, voiding with the urinal and commode, but remains very unsteady and at high risk for falls. 05/03/16 He is agreeable to continue OT/PT to try to go home next week with home PT. The wound is dressed and intact. He is voiding well. 05/04/16 Some edema noted in the calf as well as some numbness, right greater than left. Gait is much improved but core control remains poor. Review of Systems General: Negative for: fever, chills, insomnia Respiratory: Negative for: shortness of breath, cough, sputum Gastrointestinal: Negative for: nausea, vomitting, diarrhea, constipation Genitourinary: Negative for: urinary burning, urinary frequency, urinary urgency Exam Results Vital Signs Date Time Temp Pulse Resp B/P Pulse Ox O2 Delivery O2 Flow Rate FiO2 05/04/16 08:00 99.6 81 18 132/79 98 05/03/16 08:35 21 Intake and Output 05/03/16 05/03/16 05/04/16 08:00 16:00 00:00 Intake Total 120 ml 840 ml Output Total 975 ml 700 ml Balance -855 ml 140 ml Physical Examination Sitting on the chair, speech clear, eomi, mood irritable No pronator drift, no bradykinesia, normal finger taps bilaterally but better on the left than the right. Dysmetria, right sided Weakness right hip flexor4/5, quad 4/5, ant tib 0/5, gastroc 4/5 Weakness in the left hip flexor 4+/5, quad 5/5, ant tib 2/5, gastroc 5/5 Numbness mostly right L5/S1 Reflexes are present 2/4 in the left patella and ankle, 1/4 in the right patella and ankle Gait very unsteady, tends to drop down when sitting, poor core control, leans forward and drags the feet wound dry 2/4 pedal edema, non pitting, bilateral Medical Decision Making Impression and Plan Last Impressions Abdomen/Pelvis CT 04/27/16 0000 Signed Impressions: Service Date/Time: Wednesday, April 27, 2016 12:49 - CONCLUSION: 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 Clips in the region the prostate, degenerative changes primarily facets of the lower lumbar spine and a small 1.2 cm cyst lower pole right kidney. Felice Dong MD Chest X-Ray 04/26/162012 Signed Impressions: Service Date/Time: Tuesday, April 26, 2016 20:24 - CONCLUSION: No acute disease. Sinan Roberts MD Thoracic Spine MRI 04/26/16 0000 Signed Impressions: Service Date/Time: Tuesday, April 26, 2016 18:06 - CONCLUSION: 1. Minimal levoscoliosis of the lumbar spine with associated degenerative changes. Prominent disc spur most obvious at T7-T8 with some encroachment on the anterior epidural space. 2. However, the spinal canal appears to be adequate throughout without cord compromise. No acute fracture or listhesis. Sukhi Lizarraga MD Lumbar Spine MRI 04/26/16 0000 Signed Impressions: Service Date/Time: Tuesday, April 26, 2016 18:06 - CONCLUSION: 1. Degenerative disc disease most severe at the lumbosacral junction with near [id number] articulation and a diffuse disc bulge. 2. There is some narrowing of the spinal canal at L3-L4 and L4-L5. This is most severe at the L3-L4 level where there may be central nerve root compromise. 3. In addition, foraminal narrowing may be severe enough to compromise the left L3, left L4 and bilateral L5 nerve roots. This is predominantly due to facet hypertrophy. 4. Prominent disc spur at L5-S1 on the right encroaches on the lateral recess and may compromise the nerve root at right S1. 5. No acute osseous injury. Sukhi Lizarraga MD Cervical Spine MRI 04/26/16 0000 Signed Impressions: Service Date/Time: Tuesday, April 26, 2016 18:06 - CONCLUSION: Mild degenerative change throughout the cervical spine. There is left neural foraminal narrowing throughout the mid cervical spine. Sinan Roberts MD 1- Lumbar stenosis , lumbar laminectomy at L3, L4, L5 for decompression of the cauda equina well tolerated. Epidural hematoma was found.Path is negative for malignancy. OT/PT appreciated and following. He is now up with the walker but very unsteady. rehab was consulted for inpatient rehab but therapy is recommending home PT/OT. Will need home therapy, walker and braces at home. 2- Fatty liver. Gi input appreciated, no evidence of CA at this time. ETOH abstinence was discussed. A follow up with his PCP at [facility] is planned. 3- DVT prophylaxis with SCDs when in bed, Doppler ordered today Total Minutes: 10 Wesley Escobar May 04, 2016 10:54
--- NOTE | 2016-05-04 13:35 | RADRPT ---
EXAM DATE/TIME: 05/04/2016 12:12 [place] COMPARISON: No previous studies available for comparison. INDICATIONS : Bilateral leg edema. MEDICAL HISTORY : Carcinoma, prostate. Parkinson's. Tremors. Weakness. Back and joint pain. Gait problems. Sciatica. SURGICAL HISTORY : Prostate surgery. Hernia repair. Right leg tendon surgery to correct club lindsey t as a child. ENCOUNTER: Initial ACUITY: 1 day PAIN SCORE: 3/10 LOCATION: Bilateral legs. TECHNIQUE: Venous ultrasound of the left and right leg was performed from the inguinal ligament t o the proximal calf. Real-time, color Doppler and spectral tracing, compression and augmentation bao hniques were used. FINDINGS: RIGHT LEG: There is normal compressibility of the deep venous system from the inguinal region to the proximal calf. No echogenic clot is seen in the lumen of the common femoral, femoral, popliteal, and posterior tibial veins. There is a normal response of the venous system to proximal and distal augmentation and respiration. LEFT LEG: There is normal compressibility of the deep venous system from the inguinal region to t he proximal calf. No echogenic clot is seen in the lumen of the common femoral, femoral, popliteal, and posterior tibial veins. There is a normal response of the venous system to proximal and distal a ugmentation and respiration. CONCLUSION: Negative for deep venous thrombosis. Jeffrey Harper MD FACR on May 04, 2016 at 13:33 Board Certified Radiologist. This report was verified electronically.
[2016-05-05] VITALS (7 sets, daily range): BP systolic 121–189; BP diastolic 80–92; PULSE 70–84; RESP 18–20; TEMP 97.4–100.4; O2SAT 94–99
[2016-05-05] MEDS: ENALAPRILAT 1.25 MG/ML VIAL IV PUSH PRN (00:28)
[2016-05-05] MEDS: SODIUM CHLORIDE 0.9% FLUSH 5 ML FLUSH IV FLUSH PRN (00:28)
[2016-05-05] MEDS: oxyCODONE HCL 10 MG CONTROLLED RELEASE TAB PO SCH ×2 (08:06→20:59)
[2016-05-05] MEDS: VITAMIN B CMPLX/VITC/FOLIC AC CAP PO SCH (08:06)
[2016-05-05] MEDS: SENNOSIDES 8.6 MG TAB PO SCH ×2 (08:06→20:59)
[2016-05-05] MEDS: PROPRANOLOL HCL LA 60 MG CAP PO SCH (08:06)
[2016-05-05] MEDS: PANTOPRAZOLE SOD 40 MG DELAYED RELEASE TAB PO SCH (08:06)
[2016-05-05] MEDS: GABAPENTIN 400 MG CAP PO SCH ×2 (08:07→20:59)
[2016-05-05] MEDS: SODIUM CHLORIDE 0.9% FLUSH 5 ML FLUSH IV FLUSH SCH ×2 (08:07→20:58)
--- NOTE | 2016-05-05 09:45 | HHI.GIFU ---
Subjective Remarks Resting in bed. Eating lunch without complaints. Hoping to go home today. ( PickettHoney Portillo ANTOINETTE) Objective Vitals I&O Vital Signs Date Time Temp Pulse Resp B/P Pulse Ox O2 Delivery O2 Flow Rate FiO2 05/05/16 08:33 98.6 82 20 155/84 97 05/05/16 04:00 99.6 77 18 152/88 97 05/05/16 00:00 99.3 84 18 189/92 94 05/04/16 20:00 100.3 112 18 145/93 98 05/04/16 16:03 98.7 108 18 109/69 95 05/04/16 12:15 98 21 I/O 05/04/16 05/04/16 05/04/16 05/05/16 05/05/16 05/05/16 07:00 15:00 23:00 07:00 15:00 23:00 Intake Total 360 ml 480 ml 60 ml 240 ml Output Total 800 ml 175 ml 900 ml Balance -440 ml 305 ml 60 ml -660 ml Intake Oral 360 ml 480 ml 50 ml 240 ml IV Total 10 ml Output Urine Total 800 ml 175 ml 900 ml # Voids 2 # Bowel Movements 1 1 Imaging Last Impressions Lower Extremity Ultrasound 05/04/16 0000 Signed Impressions: Service Date/Time: Wednesday, May 04, 2016 12:12 - CONCLUSION: Negative for deep venous thrombosis. Jeffrey Harper MD FACR Lumbar Spine X-Ray 04/29/16 0000 Signed Impressions: Service Date/Time: Friday, April 29, 2016 09:16 - CONCLUSION: Localization as described Felice Dong MD Abdomen/Pelvis CT 04/27/16 0000 Signed Impressions: Service Date/Time: Wednesday, April 27, 2016 12:49 - CONCLUSION: 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 Clips in the region the prostate, degenerative changes primarily facets of the lower lumbar spine and a small 1.2 cm cyst lower pole right kidney. Felice Dong MD Chest X-Ray 04/26/162012 Signed Impressions: Service Date/Time: Tuesday, April 26, 2016 20:24 - CONCLUSION: No acute disease. Sinan Roberts MD Thoracic Spine MRI 04/26/16 0000 Signed Impressions: Service Date/Time: Tuesday, April 26, 2016 18:06 - CONCLUSION: 1. Minimal levoscoliosis of the lumbar spine with associated degenerative changes. Prominent disc spur most obvious at T7-T8 with some encroachment on the anterior epidural space. 2. However, the spinal canal appears to be adequate throughout without cord compromise. No acute fracture or listhesis. Sukhi Lizarraga MD Lumbar Spine MRI 04/26/16 0000 Signed Impressions: Service Date/Time: Tuesday, April 26, 2016 18:06 - CONCLUSION: 1. Degenerative disc disease most severe at the lumbosacral junction with near roba-[id number]-ljvc articulation and a diffuse disc bulge. 2. There is some narrowing of the spinal canal at L3-L4 and L4-L5. This is most severe at the L3-L4 level where there may be central nerve root compromise. 3. In addition, foraminal narrowing may be severe enough to compromise the left L3, left L4 and bilateral L5 nerve roots. This is predominantly due to facet hypertrophy. 4. Prominent disc spur at L5-S1 on the right encroaches on the lateral recess and may compromise the nerve root at right S1. 5. No acute osseous injury. Sukhi Lizarraga MD Cervical Spine MRI 04/26/16 0000 Signed Impressions: Service Date/Time: Tuesday, April 26, 2016 18:06 - CONCLUSION: Mild degenerative change throughout the cervical spine. There is left neural foraminal narrowing throughout the mid cervical spine. Sinan Roberts MD Physical Exam HEENT: Normocephalic; atraumatic; no jaundice. CHEST: CTA CARDIAC: RRR ABDOMEN: Soft, nondistended, nontender; no hepatosplenomegaly; bowel sounds are present in all four quadrants. EXTREMITIES: No clubbing, cyanosis, or edema. SKIN: Normal; no rash; no jaundice. PARLIAMENTARY LIBRARIAN: Right lower extremity weakness; alert and oriented times three. Tremors to all extremities, more pronounced on right side (Honey PickettP) Assessment and Plan Plan ASSESSMENT: - Elevated LFTs. He was noted to have elevated LFTs on admission with a total bilirubin of 3.5, AST 207, ALT 118, alkaline phosphatase 74. Of note his albumin was 3.9, platelets 87, and PT 11.8 with an INR of 1.1 and a PTT of 26.3. The patient denies any known history of liver cirrhosis or other liver disease such as hepatitis in himself or other family members. He does drink 4 beers daily. He was recently started on any medication but cannot recall what this was. He only occasionally uses acetaminophen. No GI symptoms. 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 Clips in the region the prostate, degenerative changes primarily facets of the lower lumbar spine and a small 1.2 cm cyst lower pole right kidney. Iron saturation 37.3%, Ferritin 1595, AFP 7.6, Alpha 1 Antitrypsin 155, Ceruloplasmin 18, GÉNESIS negative/ASMA negative/AMA <20. Hepatitis profile negative. T. Bili 2.2, AST 94, ALT 100, Alk Phosph 45. D/W patient importance of complete ETOH cessation, verbalizes understanding. No complaints. - RLE weakness with spinal stenosis at L3-L4 and L4-L5 with central nerve root compromise. S/P lumbar decompression from L3 to L5 (04/29) per NSx - Tremors. Pt states that he has had this since he was a child, worse on the right. States that he has been able to cope by teaching himself to write with his left hand. He reports that he was diagnosed with Parkinson 's at [facility] and is not on medication and that he has not had any progression of his disease since childhood. PLAN: - ANIVAL - Monitor LFT - Avoid hepatotoxic meds - Complete ETOH Cessation, d/w patient and he verbalizes understanding - FU MARYJO 2 weeks - GI will sign off, please reconsult as needed - Pt seen and examined by Dr. Cervantes and myself and this note is written on his behalf (Honey Pickett) Physician Comments Patient seen and examined Agree with above Continue with current supportive care Monitor labs We will sign off (Dustin Cervantes MD) Honey Pickett May 05, 2016 09:45 Dustin Cervantes MD May 05, 2016 23:12
[2016-05-05] MEDS: LISINOPRIL 5 MG TAB PO SCH (11:47)
--- NOTE | 2016-05-05 13:12 | HHI.DS ---
Discharge Summary Admission Date Apr 26, 2016 at 20:16 Discharge Date: May 06, 2016 Admitting Diagnosis Foot drop, Spinal stenosis. (1) lumbar epidural hematoma Diagnosis: Principal (2) Gait instability Diagnosis: Secondary ICD Code: R26.81 (3) Spinal stenosis Diagnosis: Secondary ICD Code: M48.00 (4) Tremor, essential Diagnosis: Secondary ICD Code: G25.0 Procedures L3 to L5 laminectomy for decompression of cauda equina Brief History 50 yr old with tremor dominant PD fell trying to get OOB last Wednesday morning because of right foot drop. He came to the ED and was found on MRI to have severe lumbar stenosis from L3 to L5. 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 He denied bowel or bladder problems. CBC/BMP: 05/01/16 0800 05/01/16 0800 Hospital Course 50 year old was admitted with leg weakness and gait instability. MRI showed severe lumbar stenosis. He underwent lumbar decompressive laminectomy after medical clearance from the GI service for his liver disease. An epidural hematoma was found at surgery. He improved medically and neurologically with rehab and medical support. He is now using an AFO brace for his right foot drop. Pt Condition on Discharge: Good Discharge Disposition: Disch w/ Home Health Serv Discharge Instructions DIET: Follow Instructions for: As Tolerated, No Restrictions Speech Therapy-Diet Recommenda: Regular ACTIVITIES You can perform: Weight Bearing As Deborah Activities to Avoid: Contact Sports, Lifting/Bending, Strenuous Activity, Driving Follow up Referrals: Gastroenterology - 3 Weeks @ [facility] Neurosurgery - 1 Week @ [facility] Follow-up - 1 Week New Medications: Walker with Front Wheels (Walker with Front Wheels) 1 Mis Mis 1 EA .ROUTE when walking gait instability #1 Ref 1 EA Alprazolam (Xanax) 0.25 Mg Tab 0.25 MG PO Q4H PRN anxiety #60 Ref 0 TAB Gabapentin (Neurontin) 400 Mg Cap 400 MG PO BID nerve pain #60 Ref 5 CAP Oxycodone ER (Oxycontin) 10 Mg Tab 10 MG PO Q12HR Pain Management #60 Ref 0 TAB Pantoprazole (Pantoprazole) 40 Mg Tab 40 MG PO DAILY prevent ulcers #30 Ref 5 TAB Propranolol ER 24 HR (Inderal LA 24 HR) 60 Mg Cap 60 MG PO DAILY for tremor #30 Ref 5 CAP Sennosides (Senna Lax) 8.6 Mg Tab 8.6 MG PO Q12HR constipation Days 60 Ref 5 TAB Vitamin B Cmplx/Vit C/Folic AC (Nephro-Ethan Rx) 1 Tab 1 CAP PO DAILY nutrition #30 Ref 5 TAB Wesley Escobar May 05, 2016 13:12
--- NOTE | 2016-05-05 13:44 | MP ---
cc: WESLEY ALVES MD DATE OF SURGERY: 04/29/2016 PREOPERATIVE DIAGNOSIS Lumbar stenosis, epidural compression L3-L5, foraminal stenosis on the right at L5-S1. POSTOPERATIVE DIAGNOSIS 1. Hemorrhagic mass from L3-L5. 2. Lumbar stenosis and foraminal stenosis at L5-S1 on the right side. PROCEDURE Bilateral L3, L4, L5 laminectomy and right L5-S1 foraminotomy, excision and biopsy of the epidural mass. ANESTHESIA General. INDICATION The patient is a 50-year-old gentleman with a history of essential tremor and Parkinson's disease who presented after a fall. He had recently been treated 8-12 months ago with radiation for prostate cancer. He was thought to be in remission. An epidural compression was found on MRI in the lumbar spine and he was markedly weaker in his right leg from baseline. The patient was taken to the operating room for decompression. TECHNIQUE The patient was brought to the operating room and placed supine on the OR bed. Anesthesia was induced and the patient intubated orally. He was then turned prone onto a Andrew frame. His lumbar region was prepped with Betadine and allowed to dry and prepped with DuraPrep and allowed to dry. The incision was planned from the pedicle of L3 to the pedicle of L5 based on fluoroscopic examination. The incision was infiltrated with 1% lidocaine with epinephrine. The incision was made with a 15 blade and carried down to the fascia with the 15 blade and monopolar cautery. The fascia was opened in the midline and a subperiosteal dissection was carried out exposing the laminae of L3, L4 and L5. Hemostasis was obtained with bipolar cautery. The double action Leksell rongeur was then used to remove the laminae of the spinous processes and some of the lamina of L3, L4 and L5. An x-ray was taken and the microscope was then brought into the field. Under the microscope the laminectomy was continued exposing the interior facets and allowing the medial aspect of the inferior facets at L3-4 and L4-5 to be removed with the Midas drill. The hypertrophic ligamentum flavum was then removed as well. The dural decompression was carried out from L5 and then L4 and then L3. The epidural space was scarred with a hemorrhagic mass. The specimen was collected and sent for microscopic pathologic examination. The decompression was carried out bilaterally at L3, L4 and L5 with 2 mm and 3 mm Kerrison rongeurs. A foraminotomy was performed on the right at L5-S1. Hemostasis was obtained with bone wax, FloSeal and warm irrigation. The EBL total was 400 cc. A drain was left in the epidural space, 7 mm flat YASMIN. The muscle layer was then re-approximated with 2-0 Vicryl sutures. The dorsal fascia was re-approximated with 2-0 Vicryl sutures. The subcutaneous layer was closed with 2-0 Vicryl sutures. The dermal layer was closed with 2-0 Vicryl sutures. The skin edges were re-approximated with maria elena. The drain was stitched in place with a 3-0 nylon suture. The wound was dressed sterilely with Primapore. The patient was then turned to the supine position. His bladder was emptied with a Cochran. He was then taken extubated to the recovery room. Wesley Alves MD YYG/ANTONI /1:26 PM /1:29 PM
[2016-05-05] MEDS ORDERED: ACETAMINOPHEN 325 MG TAB PO PRN (17:00)
[2016-05-06 06:18] VITALS: BP 145/94; PULSE 84; RESP 20; TEMP 98.6; O2SAT 98
[2016-05-06 07:54] VITALS: BP 132/88; PULSE 92; RESP 18; TEMP 99.6; O2SAT 97
[2016-05-06 08:38] LABS: AUTOMATED NEUTROPHIL # 5.7 TH/MM3 (1.8-7.7); BASOPHIL # 0.1 TH/MM3 (0-0.2); BASOPHIL % 1.4 % (0.0-2.0); EOSINOPHIL # 0.1 TH/MM3 (0-0.4); HEMATOCRIT 31.6 % (39.0-51.0); HEMO FLAGS DIFF FINAL; LYMPH % 14.4 % (9.0-44.0); LYMPHOCYTE # 1.1 TH/MM3 (1.0-4.8); MEAN CELL VOLUME 92.6 FL (80.0-100.0); MEAN CORPUSCULAR HEMOGLOBIN 30.9 PG (27.0-34.0); MEAN CORPUSCULAR HGB CONC 33.4 % (32.0-36.0); MONO % 9.8 % (0.0-8.0); NEUT % 73.4 % (16.0-70.0); PLATELET COUNT 287 TH/MM3 (150-450); RED BLOOD COUNT 3.41 MIL/MM3 (4.50-5.90); RED CELL DISTRIBUTION WIDTH 14.4 % (11.6-17.2); WHITE BLOOD COUNT 7.7 TH/MM3 (4.0-11.0)
[2016-05-06 08:54] LABS: BICARBONATE 27.9 MEQ/L (21.0-32.0); POTASSIUM 3.4 MEQ/L (3.5-5.1)
[2016-05-06] MEDS: SENNOSIDES 8.6 MG TAB PO SCH (09:00)
[2016-05-06] MEDS: SODIUM CHLORIDE 0.9% FLUSH 5 ML FLUSH IV FLUSH SCH (09:00)
[2016-05-06] MEDS: GABAPENTIN 400 MG CAP PO SCH (09:25)
[2016-05-06] MEDS: PANTOPRAZOLE SOD 40 MG DELAYED RELEASE TAB PO SCH (09:25)
[2016-05-06] MEDS: PROPRANOLOL HCL LA 60 MG CAP PO SCH (09:25)
[2016-05-06] MEDS: oxyCODONE HCL 10 MG CONTROLLED RELEASE TAB PO SCH (09:26)
[2016-05-06] MEDS: LISINOPRIL 5 MG TAB PO SCH (09:26)
[2016-05-06] MEDS: VITAMIN B CMPLX/VITC/FOLIC AC CAP PO SCH (09:26)
[2016-05-06 11:55] VITALS: BP 122/78; PULSE 80; RESP 18; TEMP 99; O2SAT 98
[2016-05-18] MEDS ORDERED: METH500T3 PO (15:28)
[2016-06-15] MEDS ORDERED: DICL75TA PO (15:29)
== END 2016-05-06 18:37 | disposition home health service (06) | DRG 30 ==
LOC: NEPA 15:15 → NEDA 20:16 → NEPGCP 22:22 → HOCA 04-27 15:39 → N05B 04-29 15:04
PROVIDERS: ADMIT Neurological Surgery; ATTEND Neurological Surgery
PROC: 00BY0ZX Excision of Lumbar Spinal Cord, Open Approach, Diagnostic (ICD-10-PCS; 2016-04-29)
PROC: 01NB0ZZ Release Lumbar Nerve, Open Approach (ICD-10-PCS; principal; 2016-04-29 08:57)
DX: G95.19 Other vascular myelopathies (principal); D69.59 Other secondary thrombocytopenia; G20 Parkinson's disease; M48.06 Spinal stenosis, lumbar region; K76.0 Fatty (change of) liver, not elsewhere classified; G25.0 Essential tremor; R26.81 Unsteadiness on feet; M21.371 Foot drop, right foot; R50.9 Fever, unspecified; M51.36 Other intervertebral disc degeneration, lumbar region; Q66.89 Other specified congenital deformities of feet; Z85.46 Personal history of malignant neoplasm of prostate; Z92.3 Personal history of irradiation
CPT/HCPCS: 71010; 72020; 72141; 72146; 72148; 74177; 76000; 80048; 80053; 80074; 80076; 82103; 82105; 82390; 82728; 83520; 83540; 83550; 83735; 84153; 84154; 85025; 85610; 85652; 85730; 86038; 86256; 86850; 86900; 86901; 88304; 88305; 93005; 93970; 96372; C9113; J0690; J2250; J2270; J2405; J2710; J2930; J3010; J3410; J3411; J7030; J7120; L0484; L1960; Q9963; Q9967

== ENCOUNTER 2017-07-06 13:56 | Emergency (ER) | payer MEDICARE, OTHER ==
[~2017-07-06] VITALS: Ht 177.8 cm; Wt 86.8 kg
[~2017-07-06 13:56] MED LIST: ALPR.25 PO; DICL75TA PO; NEPHRO PO; NEUR400C PO; OXYC-103 PO; PANT40TA3 PO; PROP60 PO; SENN1TAB27 PO
[2017-07-06 14:03] VITALS: BP 139/73; PULSE 118; RESP 20; TEMP 98.1; O2SAT 97
[2017-07-06 14:49] VITALS: BP 139/84; PULSE 114; RESP 20; O2SAT 95
--- NOTE | 2017-07-06 14:56 | RADRPT ---
EXAM DATE/TIME: 07/06/2017 14:31 [facility] COMPARISON: CT ABDOMEN & PELVIS W CONTRAST, April 27, 2016, 12:49. CHEST SINGLE AP, April 26, 2016, 20:24. INDICATIONS : Cough x 1 1/2 months, bloating in the stomach MEDICAL HISTORY : Carcinoma, prostatic. Parkinson's, tremors SURGICAL HISTORY : prostate surgery. ENCOUNTER: Initial ACUITY: 1 month PAIN SCORE: 0/10 LOCATION: Bilateral chest FINDINGS: PA and lateral views of the chest demonstrate the lungs to be symmetrically aerated without evidence of mass, infiltrate or effusion. The cardiomediastinal contours are unremarkable. Old left rib fractures are again seen. CONCLUSION: No acute cardiopulmonary disease demonstrated. Sinan Mckeon MD on July 06, 2017 at 14:52 Board Certified Radiologist. This report was verified electronically.
[2017-07-06 15:38] LABS: INTERNATIONAL NORMALIZED RATIO 1.5 RATIO; PROTHROMBIN TIME - PATIENT 14.7 SEC (9.8-11.6)
--- NOTE | 2017-07-06 15:41 | PD ---
HPI Chief Complaint: Abdominal Pain Time Seen by Provider: 14:31 Travel History International Travel<30 days: No Contact w/Intl Traveler<30days: No Traveled to known affect area: No History of Present Illness HPI Patient was in the emergency department complaining of cough, shortness of breath, bilateral lower extremity edema, and abdominal distension ongoing for approximately a month. Patient states saw GI doctor started on Lasix and spironolactone but has not had any improvement in symptoms. Patient has a follow-up appointment tomorrow,, but family/friend is concerned and feels he should wait for his follow-up appointment and decided to come to the emergency department for further treatment evaluation. Patient complained of bilateral leg pain first thing in the morning it improves when he gets up and walks around. Describes it as an achy pain without radiation. Denies any other pain in his legs. Denies anything making symptoms worse. Patient reports that he has cut back on his drinking since this began but continues to drink a "couple" of beers a day. Patient has been also using [id number] cough medication with no improvement of symptoms. Denies any chest pain, fevers, abdominal pain , nausea, vomiting, loss change in bowel or bladder. PFSH Past Medical History Anxiety: No Depression: No Cancer: No Congestive Heart Failure: No Cirrhosis: Yes Diabetes: No Diminished Hearing: No Endocrine: No Neurologic: No Psychiatric: No Seizures: No Thyroid Disease: No Tetanus Vaccination: Unknown Influenza Vaccination: Yes ?: Not Past Surgical History Abdominal Surgery: No Cardiac Surgery: No Thoracic Surgery: No Other Surgery: Yes (HERNIA) Social History Alcohol Use: Yes (EVERYDAY ) Tobacco Use: No Substance Use: No Allergies-Medications (Allergen,Severity, Reaction): Coded Allergies: No Known Allergies (Unverified Allergy, Unknown, 07/06/17) Reported Meds & Prescriptions Reported Meds & Active Scripts Active Diclofenac Sodium DR (Diclofenac Sodium) 75 Mg Tabdr 75 Mg PO BID Nephro-Ethan Rx (Vitamin B Cmplx/Vit C/Folic AC) 1 Tab 1 Cap PO DAILY Senna Lax (Sennosides) 8.6 Mg Tab 8.6 Mg PO Q12HR 60 Days Xanax (Alprazolam) 0.25 Mg Tab 0.25 Mg PO Q4H PRN Review of Systems Except as stated in HPI: all other systems reviewed are Neg Physical Exam Narrative GENERAL: Well-developed, overly nourished, in no acute distress, and non-ill appearing. SKIN: Focused skin assessment warm and dry. Jaundiced. HEAD: Atraumatic. Normocephalic. EYES: Pupils equal and round. EOMI. Scleral icterus. No injection or drainage. ENT: No nasal bleeding or discharge. Mucous membranes pink and moist. NECK: Trachea midline. Supple. No nuclear rigidity. CARDIOVASCULAR: Regular rate and rhythm. No murmur appreciated. RESPIRATORY: No accessory muscle use. No respiratory distress. Clear to auscultation. Breath sounds equal bilaterally. GASTROINTESTINAL: Abdomen soft, non-tender, distended with ascites, and no guarding. Hepatic and splenic margins not palpable. Normal bowel sounds x4. No pulsatile mass. MUSCULOSKELETAL: No obvious deformities. No clubbing. No cyanosis. Bilateral lower extremity edema left greater than right. Full range of motion. NEUROLOGICAL: Awake and alert. No obvious cranial nerve deficits. Motor grossly within normal limits. Normal speech. PSYCHIATRIC: Appropriate mood and affect; insight and judgment normal. Data Data Last Documented VS Vital Signs Date Time Temp Pulse Resp B/P (MAP) Pulse Ox O2 Delivery O2 Flow Rate FiO2 07/06/17 19:54 07/06/17 19:09 108 18 98 Room Air 07/06/17 14:03 98.1 Orders Orders Complete Blood Count With Diff (07/06/17 14:05) Comprehensive Metabolic Panel (07/06/17 14:05) Lipase (07/06/17 14:05) Prothrombin Time / Inr (Pt) (07/06/17 14:05) Act Partial Throm Time (Ptt) (07/06/17 14:05) Urinalysis - C+S If Indicated (07/06/17 14:05) Ammonia (07/06/17 14:05) Chest, Pa & Lat (07/06/17 ) B-Type Natriuretic Peptide (07/06/17 14:49) Magnesium (Mg) (07/06/17 14:49) Electrocardiogram (07/06/17 14:49) Us Leg Venous Doppler Bilat (07/06/17 15:12) Ct Abd/Pel W Iv Contrast(Rout) (07/06/17 16:11) Ct Pulmonary Angiogram (07/06/17 ) Iohexol 350 Inj (Omnipaque 350 Inj) (07/06/17 18:30) Ed Discharge Order (07/06/17 19:49) Labs Laboratory Tests Test 07/06/17 14:50 07/06/17 16:15 07/06/17 17:25 Prothrombin Time 14.7 SEC Prothromb Time International Ratio 1.5 RATIO Activated Partial Thromboplast Time 32.8 SEC Blood Urea Nitrogen 6 MG/DL Creatinine 0.79 MG/DL Random Glucose 122 MG/DL Total Protein 7.4 GM/DL Albumin 2.7 GM/DL Calcium Level 8.1 MG/DL Alkaline Phosphatase 87 U/L Aspartate Amino Transf (AST/SGOT) 68 U/L Alanine Aminotransferase (ALT/SGPT) 28 U/L Total Bilirubin 7.0 MG/DL Sodium Level 130 MEQ/L Potassium Level 3.3 MEQ/L Chloride Level 95 MEQ/L Carbon Dioxide Level 25.3 MEQ/L Anion Gap 10 MEQ/L Estimat Glomerular Filtration Rate 103 ML/MIN Magnesium Level 1.8 MG/DL Ammonia 36 MCMOL/L Lipase 251 U/L White Blood Count 3.0 TH/MM3 Red Blood Count 3.10 MIL/MM3 Hemoglobin 10.3 GM/DL Hematocrit 29.5 % Mean Corpuscular Volume 95.3 FL Mean Corpuscular Hemoglobin 33.3 PG Mean Corpuscular Hemoglobin Concent 34.9 % Red Cell Distribution Width 14.5 % Platelet Count 109 TH/MM3 Mean Platelet Volume 8.4 FL Neutrophils (%) (Auto) 54.0 % Lymphocytes (%) (Auto) 25.5 % Monocytes (%) (Auto) 17.3 % Eosinophils (%) (Auto) 2.2 % Basophils (%) (Auto) 1.0 % Neutrophils # (Auto) 1.6 TH/MM3 Lymphocytes # (Auto) 0.8 TH/MM3 Monocytes # (Auto) 0.5 TH/MM3 Eosinophils # (Auto) 0.1 TH/MM3 Basophils # (Auto) 0.0 TH/MM3 CBC Comment AUTO DIFF Differential Comment AUTO DIFF CONFIRMED Toxic Granulation 1+ Platelet Estimate LOW Platelet Morphology Comment NORMAL Shorty Cells 1+ Acanthocytes OCC B-Type Natriuretic Peptide 41 PG/ML Urine Color YELLOW Urine Turbidity CLEAR Urine pH 5.5 Urine Specific Dixon 1.016 Urine Protein NEG mg/dL Urine Glucose (UA) NEG mg/dL Urine Ketones NEG mg/dL Urine Occult Blood NEG Urine Nitrite NEG Urine Bilirubin NEG Urine Urobilinogen 8.0 MG/DL Urine Leukocyte Esterase NEG Urine RBC 9 /hpf Urine WBC 2 /hpf Urine Squamous Epithelial Cells <1 /hpf Urine Mucus MANY /lpf Microscopic Urinalysis Comment CULT NOT INDICATED MDM Medical Decision Making Medical Screen Exam Complete: Yes Emergency Medical Condition: Yes Interpretation(s) EKG reviewed by Dr. Apple shows sinus tachycardia with a ventricular rate of 114. No STEMI. Differential Diagnosis Ascites, end-stage liver disease, pancreatitis, jaundice, metabolic disturbance , hypoalbuminemia Narrative Course Patient in no obvious distress upon re-evaluation. All pertinent laboratory/ Radiology result(s) discussed with patient/family. Discussed patient with Dr. Apple prior to discharge, and is in agreement plan of care and disposition.. Any questions/concerns in reference to patient diagnosis/condition discussed and clarified prior to patient's discharge. Reinforced sheer importance of close follow up with patient's primary physician or primary care clinic as well as GI tomorrow as scheduled. Instructed patient to return to ED immediately, if symptoms return/worsen. Patient showed understanding of above instructions. Further instructions and recommendations were detailed in discharge paperwork. Patient ambulated without difficulty out of ED at discharge. Diagnosis Primary Impression: Ascites Qualified Codes: K70.31 - Alcoholic cirrhosis of liver with ascites Additional Impressions: Hepatosplenomegaly Pancytopenia Hyperbilirubinemia Hypoalbuminemia Patient Instructions: Ascites (ED), Cirrhosis (ED), General Instructions, Jaundice (ED), Pancytopenia (GEN) Additional Instructions: Follow-up with your GI doctor tomorrow as scheduled. Follow-up with your primary care doctor as soon as possible for other incidental findings noted here today as well as possible detox. Seek detox to stop drinking. Avoid Tylenol/acetaminophen. Return to the emergency department if symptoms get worse. Disposition: 01 DISCHARGE HOME Condition: Stable Jeovanny Martinez Jul 06, 2017 15:41
[2017-07-06 15:47] LABS: ALBUMIN 2.7 GM/DL (3.4-5.0); AST (GOT) 68 U/L (15-37); BICARBONATE 25.3 MEQ/L (21.0-32.0); BLOOD UREA NITROGEN 6 MG/DL (7-18); CALCIUM 8.1 MG/DL (8.5-10.1); CHLORIDE 95 MEQ/L (98-107); CREATININE 0.79 MG/DL (0.60-1.30); GLOMERULAR FILTRATION RATE 103 ML/MIN (>89); GLUCOSE,RANDOM 122 MG/DL (74-106); SODIUM (NA) 130 MEQ/L (136-145)
[2017-07-06 15:48] LABS: ALT (GPT) 28 U/L (12-78)
[2017-07-06 15:51] LABS: ALKALINE PHOSPHATASE 87 U/L (45-117); TOTAL PROTEIN 7.4 GM/DL (6.4-8.2)
--- NOTE | 2017-07-06 16:32 | RADRPT ---
EXAM DATE/TIME: 07/06/2017 15:50 [facility] COMPARISON: US LEG BILATERAL VENOUS DOPPLER, May 04, 2016, 12:12. INDICATIONS : Bilateral leg swelling. MEDICAL HISTORY : Cirrhosis. Back pain. Hernia. SURGICAL HISTORY : Hernia repair. Back surgery. ENCOUNTER: Subsequent ACUITY: 1 week PAIN SCORE: 2/10 LOCATION: Bilateral leg. TECHNIQUE: Venous ultrasound of the left and right leg was performed from the inguinal ligament to the proximal calf. Real-time, color Doppler and spectral tracing, compression and augmentation techniques were us ed. FINDINGS: RIGHT LEG: There is normal compressibility of the deep venous system from the inguinal region to the proximal ca lf. No echogenic clot is seen in the lumen of the common femoral, femoral, popliteal, and posterior tibial veins. There is a normal response of the venous system to proximal and distal augmentation an d respiration. LEFT LEG: There is normal compressibility of the deep venous system from the inguinal region to the proximal ca lf. No echogenic clot is seen in the lumen of the common femoral, femoral, popliteal, and posterior tibial veins. There is a normal response of the venous system to proximal and distal augmentation an d respiration. CONCLUSION: 1. No DVT identified. Mehdi Harper MD on July 06, 2017 at 16:29 Board Certified Radiologist. This report was verified electronically.
[2017-07-06 17:21] LABS: AUTOMATED NEUTROPHIL # 1.6 TH/MM3 (1.8-7.7); EOSINOPHIL # 0.1 TH/MM3 (0-0.4); EOSINOPHIL % 2.2 % (0.0-4.0); HEMATOCRIT 29.5 % (39.0-51.0); HEMOGLOBIN 10.3 GM/DL (13.0-17.0); LYMPH % 25.5 % (9.0-44.0); LYMPHOCYTE # 0.8 TH/MM3 (1.0-4.8); MEAN CELL VOLUME 95.3 FL (80.0-100.0); MEAN CORPUSCULAR HEMOGLOBIN 33.3 PG (27.0-34.0); MEAN CORPUSCULAR HGB CONC 34.9 % (32.0-36.0); MEAN PLATELET VOLUME 8.4 FL (7.0-11.0); MONO % 17.3 % (0.0-8.0); MONOCYTE # 0.5 TH/MM3 (0-0.9); PLATELET COUNT 109 TH/MM3 (150-450); RED CELL DISTRIBUTION WIDTH 14.5 % (11.6-17.2)
[2017-07-06 18:10] LABS: BLOOD, URINE NEG (NEG); GLUCOSE,URINE NEG (NEG); KETONE, URINE NEG (NEG); MUCUS URINE MANY /lpf (OCC); NITRITE,URINE NEG (NEG); PH, URINE 5.5 (5.0-8.5); SQUAMOUS EPITHELIAL CELL URINE <1 /hpf (0-5); URINE COLOR YELLOW (YELLW/STRAW); URINE LEUKOCYTE ESTERASE NEG (NEG)
[2017-07-06 18:12] LABS: BILIRUBIN, URINE NEG (NEG)
[2017-07-06] MEDS ORDERED: IOHEXOL 350 MG/ML 10 ML VIAL (for RAD DIAG) IVCONTRAST ONE (18:30)
[2017-07-06 18:48] LABS: ACANTHOCYTES OCC (NORMAL); BURR CELLS 1+ (NORMAL)
[2017-07-06 18:49] LABS: TOXIC GRANULATION 1+ (NORMAL)
[2017-07-06 19:09] VITALS: BP 139/84; PULSE 108; RESP 18; O2SAT 98
[2017-07-06] MEDS ORDERED: SPIR50TA PO (19:09)
[2017-07-06] MEDS ORDERED: FURO20TA PO (19:09)
--- NOTE | 2017-07-06 19:24 | RADRPT ---
EXAM DATE/TIME: 07/06/2017 18:35 [facility] COMPARISON: No previous studies available for comparison. INDICATIONS : Shortness of breath. IV CONTRAST: 75 cc Omnipaque 350 (iohexol) IV ; Cumulative dose for multiple exams. RADIATION DOSE: 8.98 CTDIvol (mGy) ; Combined studies - Thorax/Abdomen/Pelvis MEDICAL HISTORY : Cirrhosis. SURGICAL HISTORY : Hernia ENCOUNTER: Initial ACUITY: 1 day PAIN SCALE: 5/10 LOCATION: Bilateral chest TECHNIQUE: Volumetric scanning of the chest was performed using a pulmonary embolism protocol MIP images were re constructed. Using automated exposure control and adjustment of the mA and/or kV according to patien t size, radiation dose was kept as low as reasonably achievable to obtain optimal diagnostic quality images. DICOM format image data is available electronically for review and comparison. Follow-up recommendations for detected pulmonary nodules are based at a minimum on nodule size and pa tient risk factors according to Fleischner Society Guidelines. FINDINGS: Elevation of the hemidiaphragms noted. There is severe ascites. Compressive atelectasis right lung ba se. No filling defects to suggest pulmonary embolic disease. No adenopathy. CONCLUSION: 1. Negative for pulmonary embolus. 2. Severe ascites with elevated hemidiaphragms, right greater than left and compressive atelectasis a t the right lung base. Zac Way MD on July 06, 2017 at 19:20 Board Certified Radiologist. This report was verified electronically.
--- NOTE | 2017-07-06 19:30 | RADRPT ---
EXAM DATE/TIME: 07/06/2017 18:35 [facility] COMPARISON: No previous studies available for comparison. INDICATIONS : Abdomen pain and distention. IV CONTRAST: 75 cc Omnipaque 350 (iohexol) IV ; Cumulative dose for multiple exams. ORAL CONTRAST: No oral contrast ingested. RADIATION DOSE: 8.98 CTDIvol (mGy) ; Combined studies - Thorax/Abdomen/Pelvis MEDICAL HISTORY : Cirrhosis. SURGICAL HISTORY : hernia ENCOUNTER: Initial ACUITY: 1 day PAIN SCALE: 4/10 LOCATION: Bilateral abdomen TECHNIQUE: Volumetric scanning of the abdomen and pelvis was performed. Using automated exposure control and ad justment of the mA and/or kV according to patient size, radiation dose was kept as low as reasonably achievable to obtain optimal diagnostic quality images. DICOM format image data is available electro nically for review and comparison. FINDINGS: There is severe ascites with elevation of the hemidiaphragms, right greater than left and compressive atelectasis at the right lung base. Mild varices in the upper retroperitoneum and splenic hilum. Liver enlarged at 20 cm and spleen to ab out 16 cm. There is gallbladder sludge. Mild anasarca. No bowel obstruction. No free air. The adrenals, kidneys and pancreas unremarkable. Radiation seed implants in the prostatic bed. CONCLUSION: 1. Severe ascites with elevated hemidiaphragms and compressive atelectasis of the right lung base. 2. Mild varices. 3. No obstruction or free air. 4. Small fat and fluid containing umbilical hernia. 5. Splenomegaly to [address] MD on July 06, 2017 at 19:24 Board Certified Radiologist. This report was verified electronically.
--- NOTE | 2017-07-07 13:13 | EKG ---
Date Performed: 07/06/2017 Time Performed: 14:54:49 PTAGE: 51 years EKG: SINUS TACHYCARDIA ABNORMAL RHYTHM ECG NO PREVIOUS TRACING DOCTOR: Sameer Diana Interpretating Date/Time 07/07/2017 13:13:03
== END 2017-07-06 20:09 | disposition home or self-care (01) ==
LOC: NEPE 13:56
DX: K70.31 Alcoholic cirrhosis of liver with ascites (principal); R16.2 Hepatomegaly with splenomegaly, not elsewhere classified; D61.818 Other pancytopenia; E88.09 Other disorders of plasma-protein metabolism, not elsewhere classified; R00.0 Tachycardia, unspecified
CPT/HCPCS: 71046; 71275; 74177; 80053; 81001; 82140; 83690; 83735; 83880; 85025; 85610; 85730; 93005; 93970; 99285; Q9967

== ENCOUNTER 2017-07-15 12:56 | Day surgery (SDC) | payer OTHER ==
[~2017-07-15 12:56] MED LIST changes: -DICL75TA PO; +FURO20TA PO; -NEPHRO PO; -NEUR400C PO; -OXYC-103 PO; -PANT40TA3 PO; -PROP60 PO; -SENN1TAB27 PO; +SPIR50TA PO
[2017-07-15 13:43] VITALS: BP 123/73; PULSE 96; RESP 18; TEMP 98.3; O2SAT 94
[2017-07-15] MEDS ORDERED: LIDOCAINE HCL 1% 20 ML VIAL ONE (14:30)
--- NOTE | 2017-07-15 14:58 | PD.RAD ---
Post US Procedure Prog Note Pre Procedure Diagnosis: (1) Ascites Post Procedure Diagnosis: (1) Ascites Procedure Date: Jul 15, 2017 Supervising Radiologist: Sinan Cárdenas Estimated blood loss: none Anesthesia: Local Plan of Activity Patient to Unit: ROPU Patient Condition: Good See PACS Report for procedural detail/treatment Drainage Procedure Procedure 1 Imaging Guidance: Ultrasound Side: Right Procedure Type: Paracentesis Drainage: Suction Fluid Removal (CCs): 4400 Fluid Description: Clear, Yellow Plan ROPU for monitoring then discharge. Sinan Cárdenas MD Jul 15, 2017 14:58
[2017-07-15 15:00] VITALS: BP 108/64; PULSE 100; RESP 20; TEMP 98.4; O2SAT 97
--- NOTE | 2017-07-15 15:00 | RADRPT ---
EXAM DATE/TIME: 07/15/2017 13:57 [facility] COMPARISON: No previous studies available for comparison. EXTERNAL COMPARISON: [facility], US ABDOMEN COMPLETE, Feb 12 2016. INDICATIONS : Ascites. MEDICAL HISTORY : Cirrhosis. Parkinsons. SURGICAL HISTORY : Hernia Repair. Back Surgery. ENCOUNTER: Initial ACUITY: 1 month PAIN SCORE: 2/10 LOCATION: Right lower quadrant FLUID: Total volume of 4,400 cc of clear, yellow fluid was removed. Fluid was discarded. Paracentesis was therapeutic only. Post procedure scanning reveals no hematoma or other complication. TECHNIQUE: 1. Ultrasound guidance for abdominal paracentesis. 2. Paracentesis. The risks, benefits, and alternatives to ultrasound guided paracentesis were explained to the patient in detail including the risk of bleeding and infection. Written and verbal informed consent was obt ained. With the patient on the ultrasound table, ultrasound imaging was used to select the most appropriate approach for paracentesis. Overlying skin was prepped and draped in the usual sterile fashion and wi th a local anesthetic, a dermatotomy was made with an 11 blade scalpel. A 6 Marshall[place] [id number] ca theter was introduced into the peritoneal cavity and fluid was collected. The patient tolerated the procedure well and left the ultrasound suite in stable condition. CONCLUSION: Uncomplicated ultrasound guided paracentesis. Sinan Cárdenas MD on July 15, 2017 at 14:55 Board Certified Radiologist. This report was verified electronically.
[2017-07-15 15:15] VITALS: BP 105/62; PULSE 96; RESP 20; O2SAT 97
== END 2017-07-15 15:20 | disposition home or self-care (01) ==
LOC: HRAD 12:56 → HRIP 12:58 → HRAD 15:20
PROVIDERS: ATTEND Internal Medicine Gastroenterology
DX: K70.31 Alcoholic cirrhosis of liver with ascites (principal); G20 Parkinson's disease
CPT/HCPCS: 49083; C1729